=== PATIENT | male | born 1965 | race Caucasian/White ===

== ENCOUNTER → 2017-12-20 | Outpatient (CLI) | payer OTHER ==
[2017-12-20 08:09] LABS: Basophils # (A) 0.1 k/uL (0-0.2); Basophils % (A) 1 %; Eosinophils # (A) 0.1 k/uL (0-0.7); Eosinophils % (A) 2 %; HCT 47.1 % (39.0-53.0); HGB 15.5 gm/dL (13.0-17.5); Lymphocytes % (A) 30 %; MCHC 32.9 g/dL (31.0-37.0); MCV 84.9 fL (80.0-100.0); Mean Platelet Volume 7.1; Monocytes # (A) 0.5 k/uL (0-1.0); Monocytes % (A) 8 %; Neutrophils # (A) 3.7 k/uL (1.3-7.7); Neutrophils % (A) 57 %; Platelet Count 255 k/uL (150-450); RBC 5.54 m/uL (4.30-5.90); RDW 14.9 % (11.5-15.5); WBC 6.5 k/uL (3.8-10.6)
[2017-12-20 09:47] LABS: ALT 50 U/L (21-72); AST 30 U/L (17-59); Albumin 4.5 g/dL (3.5-5.0); Alkaline Phosphatase 54 U/L (38-126); Anion Gap 10 mmol/L; Blood Urea Nitrogen 10 mg/dL (9-20); Calcium 9.6 mg/dL (8.4-10.2); Carbon Dioxide 27 mmol/L (22-30); Chloride 106 mmol/L (98-107); Cholesterol 180 mg/dL (<200); Glucose 125 mg/dL (74-99); HDL Cholesterol 36 mg/dL (40-60); LDL Cholesterol,Calculated 125 mg/dL (0-99); Potassium 4.5 mmol/L (3.5-5.1); Sodium 143 mmol/L (137-145); Total Bilirubin 0.9 mg/dL (0.2-1.3); Total Protein 7.1 g/dL (6.3-8.2); Triglycerides 96 mg/dL (<150)
[2017-12-20 10:14] LABS: PSA Annual Screen 1.12 ng/mL (0.00-4.00)
== END | disposition home or self-care (01) ==
LOC: LABWHC1 07:29
PROVIDERS: ATTEND Family Medicine
DX: Z00.00 Encounter for general adult medical examination without abnormal findings (principal); I10 Essential (primary) hypertension; Z12.5 Encounter for screening for malignant neoplasm of prostate
CPT/HCPCS: 80061; 80053; 84443; 85025; 36415; G0103

== ENCOUNTER → 2019-04-12 | Outpatient (CLI) | payer OTHER ==
--- NOTE | 2019-04-12 09:00 | MM ---
Reason for exam: clinical finding. Indicated problem(s): lump or thickening in the left breast. Physical Findings: Nurse Summary: 0.5 x 0.5cm nodule in the left breast at 1 o'clock (nurse ts). MG Diagnostic Mammo w CAD OMAR Bilateral CC and MLO view(s) were taken. The breast tissue is almost entirely fat. Benign scattered round calcifications, some of which are dermal. Upper outer quadrant palpable marker on the left. These results were verbally communicated with the patient and result sheet given to the patient on 04/12/19. ASSESSMENT: Incomplete: need additional imaging evaluation, BI-RAD 0 RECOMMENDATION: Ultrasound of the left breast.
--- NOTE | 2019-04-12 09:03 | USB ---
Reason for exam: clinical finding. US Breast LT Left complete breast ultrasound includes all four quadrants, the retroareolar region and axilla. Finding demonstrates a 2.1 x 0.5 x 2.1cm oval, circumscribed, solid, isoechoic lesion at 1 o'clock BB. Lesion is soft per the nurse, features highly suggestive of a lipoma. No other solid or cystic lesion. These results were verbally communicated with the patient and result sheet given to the patient on 04/12/19. ASSESSMENT: Probably benign, BI-RAD 3 RECOMMENDATION: Ultrasound of the left breast in 6 -12 months, 1 o'clock, as a precautionary measure. Surgical consultation can be considered if the patient desires excision. ALANNA
== END | disposition home or self-care (01) ==
LOC: RADMAMWWP 07:30
PROVIDERS: ATTEND Family Medicine
DX: N63.10 Unspecified lump in the right breast, unspecified quadrant (principal); N63.20 Unspecified lump in the left breast, unspecified quadrant; R92.8 Other abnormal and inconclusive findings on diagnostic imaging of breast
CPT/HCPCS: 77066

== ENCOUNTER 2020-10-20 21:22 | Inpatient (IN) | payer OTHER ==
[2020-10-20] MEDS ORDERED: ACETAMINOPHEN TAB 500 MG TAB PO STA (22:14)
[2020-10-20] MEDS ORDERED: SODIUM CHLORIDE 0.9% 1,000 ML IV ONE ×2 (22:15→23:06)
--- NOTE | 2020-10-20 22:57 | ED ---
General Adult HPI - General Chief complaint: Shortness of Breath Stated complaint: COVID/SOB Time Seen by Provider: 10/20/20 21:58 Source: patient, RN notes reviewed, old records reviewed Mode of arrival: ambulatory Limitations: no limitations - History of Present Illness Initial comments: 55-year-old male presents to return today with complaints of difficulty in breathing. He did have a positive covid test this week. 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 Patient states he noted that his pulse ox at home was 93% prior to deciding to come to the emergency department. He states that he complains of nausea and isn't taking azithromycin and steroids for the past few days. Patient reports that he has significant thirst and is concerned that he may have diabetes because he cannot seem to quench his thirst after being on steroids. Reports family history of diabetes. He arrived to the emergency department with a fever 100.2. - Related Data Home Medications Medication Instructions Recorded Confirmed Omeprazole [PriLOSEC] 40 mg PO DAILY 07/21/15 10/20/20 Albuterol Sulfate [Albuterol 2 puff PO RT-Q6H PRN 10/20/20 10/20/20 Sulfate Hfa] Azithromycin [Zithromax] See Taper PO DIRECTED 10/20/20 10/20/20 lisinopriL 20 mg PO DAILY 10/20/20 10/20/20 predniSONE See Taper PO DIRECTED 10/20/20 10/20/20 Allergies Allergy/AdvReac Type Severity Reaction Status Date / Time tramadol [From Ultram] Allergy Itching Verified 10/20/20 23:08 Review of Systems ROS Statement: Those systems with pertinent positive or pertinent negative responses have been documented in the HPI. ROS Other: All systems not noted in ROS Statement are negative. Past Medical History Past Medical History: GERD/Reflux, Hypertension Additional Past Medical History / Comment(s): left knee History of Any Multi-Drug Resistant Organisms: None Reported Past Surgical History: Cholecystectomy Additional Past Surgical History / Comment(s): Cyst removed from left sinus 1994 Past Anesthesia/Blood Transfusion Reactions: No Reported Reaction Past Psychological History: No Psychological Hx Reported Smoking Status: Never smoker Past Alcohol Use History: None Reported Past Drug Use History: None Reported - Past Family History Mother Family Medical History: Dementia (Mother this summer from her dementia.) Additional Family Medical History / Comment(s): Father of myocardial infarction at the age of 62. He said her brother of an [facility] and he was in his 40s inspite excellent health. General Exam - General Exam Comments Initial Comments: Pleasant 55-year-old male. Limitations: no limitations General appearance: alert Head exam: Present: atraumatic, normocephalic, normal inspection Eye exam: Present: normal appearance ENT exam: Present: normal exam, mucous membranes moist Neck exam: Present: normal inspection. Absent: tenderness, meningismus, lymphadenopathy Respiratory exam: Present: normal lung sounds bilaterally. Absent: respiratory distress, wheezes, rales, rhonchi, stridor Cardiovascular Exam: Present: regular rate, normal rhythm, normal heart sounds. Absent: systolic murmur, diastolic murmur, rubs, gallop, clicks GI/Abdominal exam: Present: soft, normal bowel sounds. Absent: distended, tenderness, guarding, rebound, rigid Extremities exam: Present: normal inspection, full ROM, normal capillary refill. Absent: tenderness, pedal edema, joint swelling, calf tenderness Back exam: Present: normal inspection Neurological exam: Present: alert, oriented X3, CN II-XII intact Psychiatric exam: Present: normal affect, normal mood Skin exam: Present: warm, dry, intact, normal color. Absent: rash Course Vital Signs 10/20/20 10/21/20 21:26 00:41 Temperature 100.2 F H Pulse Rate 109 H 73 Respiratory 18 18 Rate Blood Pressure 145/77 132/75 O2 Sat by Pulse 97 98 Oximetry Medical Decision Making - Medical Decision Making Patient 5-year-old male with a diagnosis of easley virus on Friday. He presents emergency department with concern for difficulty in breathing and increased thirst. He's been on steroids and azithromycin for the past few days. At this time Patient was found to be hyperglycemic with a new onset diabetes blood sugar of 696. He is acetone positive. Patient is given Tylenol for his fever. He was started on 2 L bolus. Likely that the steroids and easley virus caused the induction of type 2 diabetes for this Patient. Patient is chest x- rays reviewed and shows atelectasis but no significant pneumonia. He's been 95% on room air and emergency department. With the concern of new diagnosis of diabetes as well as easley virus infection Patient will be admitted at this time. - Lab Data Result diagrams: 10/20/20 22:45 10/20/20 22:45 Lab Results 10/20/20 10/20/20 10/20/20 Range/Units 22:45 22:45 22:45 WBC 5.7 (3.8-10.6) k/uL RBC 5.74 (4.30-5.90) m/uL Hgb 15.8 (13.0-17.5) gm/dL Hct 46.9 (39.0-53.0) % MCV 81.8 (80.0-100.0) fL MCH 27.5 (25.0-35.0) pg MCHC 33.6 (31.0-37.0) g/dL RDW 13.2 (11.5-15.5) % Plt Count 190 (150-450) k/uL MPV 8.0 Neutrophils % 82 % Lymphocytes % 11 % Monocytes % 6 % Eosinophils % 1 % Basophils % 0 % Neutrophils # 4.7 (1.3-7.7) k/uL Lymphocytes # 0.6 L (1.0-4.8) k/uL Monocytes # 0.3 (0-1.0) k/uL Eosinophils # 0.0 (0-0.7) k/uL Basophils # 0.0 (0-0.2) k/uL PT 9.6 (9.0-12.0) sec INR 0.9 (<1.2) APTT 30.6 H (22.0-30.0) sec D-Dimer 0.41 (<0.60) mg/L FEU Sodium 127 L (137-145) mmol/L Potassium 5.7 H (3.5-5.1) mmol/L Chloride 93 L (98-107) mmol/L Carbon Dioxide 19 L (22-30) mmol/L Anion Gap 15 mmol/L BUN 26 H (9-20) mg/dL Creatinine 1.04 (0.66-1.25) mg/dL Est GFR (CKD-EPI)AfAm >90 (>60 ml/min/1.73 sqM) Est GFR (CKD-EPI)NonAf 82 (>60 ml/min/1.73 sqM) Glucose 696 H* (74-99) mg/dL POC Glucose (mg/dL) (75-99) mg/dL POC Glu Head Housekeeper ID Plasma Lactic Acid Axel (0.7-2.0) mmol/L Calcium 9.0 (8.4-10.2) mg/dL Magnesium 1.8 (1.6-2.3) mg/dL Total Bilirubin 1.1 (0.2-1.3) mg/dL AST 48 (17-59) U/L ALT 73 H (4-49) U/L Alkaline Phosphatase 83 (38-126) U/L Lactate Dehydrogenase 397 (313-618) U/L C-Reactive Protein 16.9 H (<10.0) mg/L Total Protein 7.2 (6.3-8.2) g/dL Albumin 4.5 (3.5-5.0) g/dL Acetone, Qual (Negative) 10/20/20 10/20/20 10/20/20 Range/Units 22:45 22:45 23:00 WBC (3.8-10.6) k/uL RBC (4.30-5.90) m/uL Hgb (13.0-17.5) gm/dL Hct (39.0-53.0) % MCV (80.0-100.0) fL MCH (25.0-35.0) pg MCHC (31.0-37.0) g/dL RDW (11.5-15.5) % Plt Count (150-450) k/uL MPV Neutrophils % % Lymphocytes % % Monocytes % % Eosinophils % % Basophils % % Neutrophils # (1.3-7.7) k/uL Lymphocytes # (1.0-4.8) k/uL Monocytes # (0-1.0) k/uL Eosinophils # (0-0.7) k/uL Basophils # (0-0.2) k/uL PT (9.0-12.0) sec INR (<1.2) APTT (22.0-30.0) sec D-Dimer (<0.60) mg/L FEU Sodium (137-145) mmol/L Potassium (3.5-5.1) mmol/L Chloride (98-107) mmol/L Carbon Dioxide (22-30) mmol/L Anion Gap mmol/L BUN (9-20) mg/dL Creatinine (0.66-1.25) mg/dL Est GFR (CKD-EPI)AfAm (>60 ml/min/1.73 sqM) Est GFR (CKD-EPI)NonAf (>60 ml/min/1.73 sqM) Glucose (74-99) mg/dL POC Glucose (mg/dL) >600 H (75-99) mg/dL POC Glu Head Housekeeper ID Gerry Mcguire Plasma Lactic Acid Axel 1.8 (0.7-2.0) mmol/L Calcium (8.4-10.2) mg/dL Magnesium (1.6-2.3) mg/dL Total Bilirubin (0.2-1.3) mg/dL AST (17-59) U/L ALT (4-49) U/L Alkaline Phosphatase (38-126) U/L Lactate Dehydrogenase (313-618) U/L C-Reactive Protein (<10.0) mg/L Total Protein (6.3-8.2) g/dL Albumin (3.5-5.0) g/dL Acetone, Qual Positive (Negative) 10/21/20 Range/Units 00:00 WBC (3.8-10.6) k/uL RBC (4.30-5.90) m/uL Hgb (13.0-17.5) gm/dL Hct (39.0-53.0) % MCV (80.0-100.0) fL MCH (25.0-35.0) pg MCHC (31.0-37.0) g/dL RDW (11.5-15.5) % Plt Count (150-450) k/uL MPV Neutrophils % % Lymphocytes % % Monocytes % % Eosinophils % % Basophils % % Neutrophils # (1.3-7.7) k/uL Lymphocytes # (1.0-4.8) k/uL Monocytes # (0-1.0) k/uL Eosinophils # (0-0.7) k/uL Basophils # (0-0.2) k/uL PT (9.0-12.0) sec INR (<1.2) APTT (22.0-30.0) sec D-Dimer (<0.60) mg/L FEU Sodium (137-145) mmol/L Potassium (3.5-5.1) mmol/L Chloride (98-107) mmol/L Carbon Dioxide (22-30) mmol/L Anion Gap mmol/L BUN (9-20) mg/dL Creatinine (0.66-1.25) mg/dL Est GFR (CKD-EPI)AfAm (>60 ml/min/1.73 sqM) Est GFR (CKD-EPI)NonAf (>60 ml/min/1.73 sqM) Glucose (74-99) mg/dL POC Glucose (mg/dL) >600 H (75-99) mg/dL POC Glu Head Housekeeper ID Zain Cope Plasma Lactic Acid Axel (0.7-2.0) mmol/L Calcium (8.4-10.2) mg/dL Magnesium (1.6-2.3) mg/dL Total Bilirubin (0.2-1.3) mg/dL AST (17-59) U/L ALT (4-49) U/L Alkaline Phosphatase (38-126) U/L Lactate Dehydrogenase (313-618) U/L C-Reactive Protein (<10.0) mg/L Total Protein (6.3-8.2) g/dL Albumin (3.5-5.0) g/dL Acetone, Qual (Negative) 10/21/20 00:47 EKG performed at 2256 shows normal sinus rhythm possible left atrial enlargeme nt. Borderline EKG. Ventricular rate of 78 bpm. As 154 ms. QRS duration is 84 ms. QT QTc is 366/420 ms. - Radiology Data Radiology results: report reviewed Chest x-ray shows minimal subsegmental atelectasis in the left midlung. Normal heart. Disposition Clinical Impression: COVID-19, Newly diagnosed diabetes Disposition: ADMITTED IP TO THIS HOSP Condition: Stable Is patient prescribed a controlled substance at d/c from ED?: No Referrals: Vj Malik DO [Primary Care Provider] - 1-2 days Time of Disposition: 00:50
--- NOTE | 2020-10-20 23:02 | XR ---
EXAMINATION TYPE: XR chest 1V portable DATE OF EXAM: 10/20/2020 COMPARISON: NONE HISTORY: Short of breath TECHNIQUE: FINDINGS: There is small linear density left midlung. The other lung reynoso are clear. Heart and medi astinum are normal. Diaphragm is normal. Bony thorax appears intact. IMPRESSION: Minimal subsegmental atelectasis in the left midlung. Normal heart.
[2020-10-20 23:03] LABS: Basophils % (A) 0 %; Eosinophils % (A) 1 %; HCT 46.9 % (39.0-53.0); HGB 15.8 gm/dL (13.0-17.5); Lymphocytes # (A) 0.6 k/uL (1.0-4.8); Lymphocytes % (A) 11 %; MCH 27.5 pg (25.0-35.0); MCHC 33.6 g/dL (31.0-37.0); MCV 81.8 fL (80.0-100.0); Monocytes # (A) 0.3 k/uL (0-1.0); Monocytes % (A) 6 %; Neutrophils # (A) 4.7 k/uL (1.3-7.7); Neutrophils % (A) 82 %; Platelet Count 190 k/uL (150-450); RBC 5.74 m/uL (4.30-5.90); RDW 13.2 % (11.5-15.5); WBC 5.7 k/uL (3.8-10.6)
[2020-10-20 23:06] LABS: Glucose,Whole Blood >600 mg/dL (75-99)
[2020-10-20 23:16] LABS: ALT 73 U/L (4-49); AST 48 U/L (17-59); African American GFR (CKD) >90 (>60 ml/min/1.73 sqM); Albumin 4.5 g/dL (3.5-5.0); Alkaline Phosphatase 83 U/L (38-126); Anion Gap 15 mmol/L; Blood Urea Nitrogen 26 mg/dL (9-20); C Reactive Protein 16.9 mg/L (<10.0); Carbon Dioxide 19 mmol/L (22-30); Chloride 93 mmol/L (98-107); D-Dimer 0.41 mg/L FEU (<0.60); INR 0.9 (<1.2); LDH 397 U/L (313-618); Magnesium 1.8 mg/dL (1.6-2.3); Non-African American GFR(CKD) 82 (>60 ml/min/1.73 sqM); Partial Thromboplastin Time 30.6 sec (22.0-30.0); Potassium 5.7 mmol/L (3.5-5.1); Prothrombin Time 9.6 sec (9.0-12.0); Sodium 127 mmol/L (137-145); Total Bilirubin 1.1 mg/dL (0.2-1.3); Total Protein 7.2 g/dL (6.3-8.2)
[2020-10-20] MEDS ORDERED: ONDANSETRON 4 MG/2 ML VIAL IM STA (23:17)
[2020-10-20] MEDS ORDERED: ONDANSETRON 4 MG/2 ML VIAL IVP STA (23:24)
[2020-10-20 23:29] LABS: Glucose 696 mg/dL (74-99)
[2020-10-20] MEDS ORDERED: INSULIN REGULAR 100 UNIT in SODIUM CHLORIDE 0.9% 100 ML IV SCH (23:45)
[2020-10-20] MEDS ORDERED: INSULIN REGULAR BOLUS (FROM DRIP BAG) IV ONE (23:55)
[2020-10-21 00:01] LABS: Glucose,Whole Blood >600 mg/dL (75-99)
[2020-10-21] MEDS: SODIUM CHLORIDE 0.9% 1,000 ML IV SCH ×5 (00:31→16:06)
[2020-10-21] MEDS ORDERED: ALBUTEROL HFA INHALER INHALATION STA (00:50)
[2020-10-21] MEDS ORDERED: ACETAMINOPHEN TAB 500 MG TAB PO STA (00:50)
[2020-10-21 01:55] LABS: Glucose,Whole Blood 458 mg/dL (75-99)
[2020-10-21 03:00] LABS: Glucose,Whole Blood 325 mg/dL (75-99)
[2020-10-21 04:06] LABS: Glucose,Whole Blood 297 mg/dL (75-99)
[2020-10-21] MEDS: D5-0.45% NACL WITH KCL 20MEQ/L 1,000 ML IV SCH ×2 (04:44→06:24)
[2020-10-21 05:01] LABS: Glucose,Whole Blood 246 mg/dL (75-99)
[2020-10-21 05:29] LABS: African American GFR (CKD) >90 (>60 ml/min/1.73 sqM); Anion Gap 8 mmol/L; Blood Urea Nitrogen 23 mg/dL (9-20); Carbon Dioxide 22 mmol/L (22-30); Chloride 105 mmol/L (98-107); Glucose 255 mg/dL (74-99); Non-African American GFR(CKD) >90 (>60 ml/min/1.73 sqM); Phosphorus 4.3 mg/dL (2.5-4.5); Potassium 3.8 mmol/L (3.5-5.1); Sodium 135 mmol/L (137-145)
[2020-10-21] MEDS ORDERED: INSULIN NPH 300 UNIT/3 ML VIAL SQ ONE (05:51)
[2020-10-21 06:03] LABS: Glucose,Whole Blood 192 mg/dL (75-99)
[2020-10-21] MEDS: INSULIN ASPART (NovoLOG) 100 UNIT/ML VIAL SQ SCH ×5 (07:00→21:21)
[2020-10-21] MEDS: INSULIN DETEMIR (LEVEMIR) 100 UNIT/ML SYR SQ SCH (07:00)
[2020-10-21] MEDS: ENOXAPARIN 40 MG/0.4 ML SYRINGE SQ SCH (07:42)
[2020-10-21 09:26] LABS: African American GFR (CKD) >90 (>60 ml/min/1.73 sqM); Anion Gap 6 mmol/L; Blood Urea Nitrogen 22 mg/dL (9-20); Carbon Dioxide 26 mmol/L (22-30); Chloride 106 mmol/L (98-107); Glucose 111 mg/dL (74-99); Non-African American GFR(CKD) >90 (>60 ml/min/1.73 sqM); Potassium 4.1 mmol/L (3.5-5.1); Sodium 138 mmol/L (137-145)
[2020-10-21 09:33] LABS: Ferritin 265.6 ng/mL (22.0-322.0)
--- NOTE | 2020-10-21 11:05 | P.HPIM ---
History of Present Illness Patient is a pleasant 55-year-old the male who was recently diagnosed with covid 19 came in with the some difficulty of breathing nausea. Patient is high of found to have highly elevated blood sugars was never diagnosed with her diabetes mellitus. Patient also is taking her prednisone as an outpatient after he was diagnosed with Covid 19. Patient blood sugars were in 600 was given 30 units of Lantus last night blood sugars have come down to 200 his blood sugars are very high because of the systemic steroids. Probably can try oral glycemic agents and thing was discussed with the patient patient wanted to try metformin patient will be discharged on metformin find it twice a day will need an increased dose of metformin probably around thousand twice a day. Patient will also be started on high dose of glipizide and patient will check his blood sugars and they're going on patient will cut down the dose. Patient will need glipizide of for steroid-induced hyperglycemia. Diabetic supplies glucometer, diverticular educa tion and be provided. 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 Review of Systems REVIEW OF SYSTEMS: CONSTITUTIONAL: No fever, no malaise, no fatigue. HEENT: No recent visual problems or hearing problems. Denied any sore throat. CARDIOVASCULAR: No chest pain, orthopnea, PND, no palpitations, no syncope. PULMONARY: No shortness of breath, no cough, no hemoptysis. GASTROINTESTINAL: No diarrhea, no nausea, no vomiting, no abdominal pain. NEUROLOGICAL: No headaches, no weakness, no numbness. HEMATOLOGICAL: Denies any bleeding or petechiae. GENITOURINARY: Denies any burning micturition, frequency, or urgency. MUSCULOSKELETAL/RHEUMATOLOGICAL: Denies any joint pain, swelling, or any muscle pain. ENDOCRINE: Denies any polyuria or polydipsia. The rest of the 14-point review of systems is negative. Past Medical History Past Medical History: GERD/Reflux, Hypertension Additional Past Medical History / Comment(s): left knee gout History of Any Multi-Drug Resistant Organisms: None Reported Past Surgical History: Cholecystectomy Additional Past Surgical History / Comment(s): Cyst removed from left sinus 1994 Past Anesthesia/Blood Transfusion Reactions: No Reported Reaction Past Psychological History: No Psychological Hx Reported Additional Psychological History / Comment(s): Retired from the [employer]. 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 He is lives with family home with his . He has 4 adult children from the age of 26-22 of them currently live at home. One son is in the in [place] but he has not visited there. He relates that he has not traveled overseas since his time in the [employer], he was in [place]. He was stationed in multiple [facility] but has not traveled out of the [place] area in quite some time. He does occasionally visit his son in the state of [place], this is the last base that he was on before he retired. There are no animals within the home. He has no severe history of alcohol or recreational drug use or tobacco use. Smoking Status: Never smoker Past Alcohol Use History: None Reported Past Drug Use History: None Reported - Past Family History Mother Family Medical History: Dementia Additional Family Medical History / Comment(s): Father of myocardial infarction at the age of 62. He said her brother of an [place] and he was in his 40s inspite excellent health. Medications and Allergies Home Medications Medication Instructions Recorded Confirmed Type Omeprazole [PriLOSEC] 40 mg PO DAILY 07/21/15 10/20/20 History Albuterol Sulfate [Albuterol 2 puff PO RT-Q6H PRN 10/20/20 10/20/20 History Sulfate Hfa] Azithromycin [Zithromax] See Taper PO DIRECTED 10/20/20 10/20/20 History predniSONE See Taper PO DIRECTED 10/20/20 10/20/20 History glipiZIDE [Glucotrol] 20 mg PO AC-BID #60 tablet 10/21/20 Rx lisinopriL 10 mg PO DAILY #0 10/21/20 10/20/20 Rx metFORMIN HCL [Glucophage] 500 mg PO BID #60 tab 10/21/20 Rx Allergies Allergy/AdvReac Type Severity Reaction Status Date / Time tramadol [From Ultram] Allergy Itching Verified 10/20/20 23:08 Physical Exam Vitals: Vital Signs Temp Pulse Pulse Resp BP BP Pulse Ox 10/21/20 07:48 97.7 F 68 18 117/64 99 10/21/20 04:00 97.8 F 71 18 110/65 99 10/21/20 03:12 98.1 F 75 18 120/66 100 10/21/20 02:30 98.1 F 75 18 123/69 98 10/21/20 01:50 87 18 141/75 98 10/21/20 01:00 89 19 124/80 99 10/21/20 00:41 73 18 132/75 98 10/21/20 00:00 98.1 F 73 18 129/70 98 10/20/20 21:26 100.2 F H 109 H 18 145/77 97 Intake and Output 10/20/20 10/21/20 10/21/20 22:59 06:59 14:59 Intake Total 670.334 240 Balance 670.334 240 Intake: Intake, IV Titration 670.334 Amount Insulin Regular 100 unit 70.334 In Sodium Chloride 0.9% 100 ml @ 0.1 UNITS/KG/HR 9.891 mls/hr IV .[id number] [facility] Rx#:[id number] Sodium Chloride 0.9% 1, 600 000 ml @ 200 mls/hr IV . Q5H [facility] Rx#:[id number] Oral 240 Other: # Voids 1 Weight 97.931 kg 101.5 kg PHYSICAL EXAMINATION: GENERAL: The patient is alert and oriented x3, not in any acute distress. Well developed, well nourished. HEENT: Pupils are round and equally reacting to light. EOMI. No scleral icterus. No conjunctival pallor. Normocephalic, atraumatic. No pharyngeal erythema. No thyromegaly. CARDIOVASCULAR: S1 and S2 present. No murmurs, rubs, or gallops. PULMONARY: Chest is clear to auscultation, no wheezing or crackles. ABDOMEN: Soft, nontender, nondistended, normoactive bowel sounds. No palpable organomegaly. MUSCULOSKELETAL: No joint swelling or deformity. EXTREMITIES: No cyanosis, clubbing, or pedal edema. NEUROLOGICAL: Gross neurological examination did not reveal any focal deficits. SKIN: No rashes. Results CBC & Chem 7: 10/20/20 22:45 10/21/20 08:04 Labs: Abnormal Lab Results - Last 24 Hours (Table) 10/20/20 10/20/20 10/20/20 Range/Units 22:45 22:45 22:45 Lymphocytes # 0.6 L (1.0-4.8) k/uL APTT 30.6 H (22.0-30.0) sec Sodium 127 L (137-145) mmol/L Potassium 5.7 H (3.5-5.1) mmol/L Chloride 93 L (98-107) mmol/L Carbon Dioxide 19 L (22-30) mmol/L BUN 26 H (9-20) mg/dL Glucose 696 H* (74-99) mg/dL POC Glucose (mg/dL) (75-99) mg/dL ALT 73 H (4-49) U/L C-Reactive Protein 16.9 H (<10.0) mg/L 10/20/20 10/21/20 10/21/20 Range/Units 23:00 00:00 01:48 Lymphocytes # (1.0-4.8) k/uL APTT (22.0-30.0) sec Sodium (137-145) mmol/L Potassium (3.5-5.1) mmol/L Chloride (98-107) mmol/L Carbon Dioxide (22-30) mmol/L BUN (9-20) mg/dL Glucose (74-99) mg/dL POC Glucose (mg/dL) >600 H >600 H 458 H (75-99) mg/dL ALT (4-49) U/L C-Reactive Protein (<10.0) mg/L 10/21/20 10/21/20 10/21/20 Range/Units 02:58 04:04 04:53 Lymphocytes # (1.0-4.8) k/uL APTT (22.0-30.0) sec Sodium 135 L (137-145) mmol/L Potassium (3.5-5.1) mmol/L Chloride (98-107) mmol/L Carbon Dioxide (22-30) mmol/L BUN 23 H (9-20) mg/dL Glucose 255 H (74-99) mg/dL POC Glucose (mg/dL) 325 H 297 H (75-99) mg/dL ALT (4-49) U/L C-Reactive Protein (<10.0) mg/L 10/21/20 10/21/20 10/21/20 Range/Units 05:00 06:02 08:04 Lymphocytes # (1.0-4.8) k/uL APTT (22.0-30.0) sec Sodium (137-145) mmol/L Potassium (3.5-5.1) mmol/L Chloride (98-107) mmol/L Carbon Dioxide (22-30) mmol/L BUN 22 H (9-20) mg/dL Glucose 111 H (74-99) mg/dL POC Glucose (mg/dL) 246 H 192 H (75-99) mg/dL ALT (4-49) U/L C-Reactive Protein (<10.0) mg/L Thrombosis Risk Factor Assmnt - Choose All That Apply Any of the Below Risk Factors Present?: Yes Each Factor Represents 1 point: Age 41-60 years Other Risk Factors: No Other congenital or acquired thrombophilia - If yes, enter type in comment: No Thrombosis Risk Factor Assessment Total Risk Factor Score: 1 Thrombosis Risk Factor Assessment Level: Low Risk Assessment and Plan Plan: Hypoglycemia: New-onset diabetes mellitus: Management as mentioned above -Covid 19 pneumonia and hypoxia secondary to that patient is saturating well without any oxygen at this time will be discharged today patient will continue his steroid taper but will taper it faster than is advised by his PCP. [place]- -gastroesophageal reflux disease -Hypertension: Patient blood pressures are low normal, we will cut down the dose of lisinopril to 10 mg
[2020-10-21 12:24] LABS: Glucose,Whole Blood 354 mg/dL (75-99)
[2020-10-21] MEDS ORDERED: ONDANSETRON ODT 4 MG TAB PO STA (12:30)
[2020-10-21 14:26] LABS: Glucose,Whole Blood 367 mg/dL (75-99)
[2020-10-21] MEDS ORDERED: INSULIN ASPART (NovoLOG) 100 UNIT/ML VIAL SQ ONE (15:07)
[2020-10-21 16:45] LABS: Glucose,Whole Blood 344 mg/dL (75-99)
--- NOTE | 2020-10-21 19:16 | CT ---
EXAMINATION TYPE: CT angio chest DATE OF EXAM: 10/21/2020 6:57 PM COMPARISON: Radiograph 10/20/2020. HISTORY: Increased dyspnea, +covid. CT DLP: 395.9 mGycm Automated exposure control for dose reduction was used. CONTRAST: CTA scan of the thorax is performed with IV Contrast, patient injected with 100 mL of Isovue 370, pul monary embolism protocol. MIP images are created and reviewed. FINDINGS: LUNGS: There are bilateral diffuse mild to moderate patchy groundglass opacities. There is no pleur al effusion or pneumothorax seen. The tracheobronchial tree is patent. MEDIASTINUM: There is satisfactory enhancement of the pulmonary artery and its branches, there is no CT evidence for pulmonary embolism. There are no greater than 1 cm hilar or mediastinal lymph nodes. No pericardial effusion is seen. OTHER: No additional significant abnormality is seen. Hepatic steatosis noted. IMPRESSION: BILATERAL DIFFUSE GROUNDGLASS OPACITIES, CONSISTENT WITH COVID PNEUMONIA. NO ACUTE PE.
[2020-10-21] MEDS ORDERED: IBUPROFEN 200 MG TAB PO PRN (21:01)
[2020-10-21 21:20] LABS: Glucose,Whole Blood 249 mg/dL (75-99)
[2020-10-21] MEDS: CHOLECALCIFEROL 400 UNIT TAB PO SCH (21:21)
[2020-10-21] MEDS: ASCORBIC ACID 500 MG TAB PO SCH (21:21)
[2020-10-21] MEDS: ZINC SULFATE 220 MG CAP PO SCH (21:21)
[2020-10-21] MEDS: ONDANSETRON ODT 4 MG TAB PO PRN (21:50)
[2020-10-22] MEDS: SODIUM CHLORIDE 0.9% 1,000 ML IV SCH ×3 (01:08→20:36)
[2020-10-22] MEDS ORDERED: ARTIFICIAL TEARS-HYPROMELLOSE DROPS 15 ML BTL BOTH EYES PRN (07:17)
[2020-10-22 07:24] LABS: Glucose,Whole Blood 278 mg/dL (75-99)
[2020-10-22] MEDS ORDERED: PANTOPRAZOLE 40 MG TABLET PO SCH (07:30)
[2020-10-22] MEDS: PANTOPRAZOLE 40 MG/10 ML VIAL IVP SCH ×2 (07:52→20:26)
[2020-10-22] MEDS: ENOXAPARIN 40 MG/0.4 ML SYRINGE SQ SCH (07:56)
[2020-10-22] MEDS: INSULIN ASPART (NovoLOG) 100 UNIT/ML VIAL SQ SCH ×7 (07:58→20:35)
[2020-10-22] MEDS: INSULIN DETEMIR (LEVEMIR) 100 UNIT/ML SYR SQ SCH (07:58)
[2020-10-22] MEDS ORDERED: BENZOCAINE/MENTHOL LOZENG 1 EACH LOZENGE MUCOUS MEM PRN (08:42)
[2020-10-22] MEDS: dexAMETHasone 2 MG TAB PO SCH ×2 (09:38→09:45)
[2020-10-22] MEDS: MAG HYDROX/AL HYDROX/SIMETH 30 ML, diphenhydrAMINE ELIXIR 75 MG, LIDOCAINE VISCOUS 30 ML PO SCH ×9 (09:38→20:38)
[2020-10-22] MEDS: DEXAMETHASONE SOD PHOSPHATE 10 MG/ML 1 ML VIAL IV SCH (11:50)
[2020-10-22 12:07] LABS: C Reactive Protein 20.8 mg/L (<10.0)
[2020-10-22 12:17] LABS: Glucose,Whole Blood 183 mg/dL (75-99)
[2020-10-22] MEDS ORDERED: ACETAMINOPHEN IV (For NPO) 1,000 MG in EMPTY BAG 1 BAG IVPB ONE (12:58)
[2020-10-22] MEDS ORDERED: REMDESIVIR (EUA) 200 MG in SODIUM CHLORIDE 0.9% 250 ML IVPB ONE (13:00)
[2020-10-22 13:17] LABS: Hemoglobin A1C 9.8 % (4.0-6.0)
--- NOTE | 2020-10-22 13:21 | P.PN ---
Subjective 55-year-old male was admitted for Covid19. Patient is also new-onset diabetes mellitus. Patient didn't do well as today patient was quite a bit nauseous quite miserable today became hypoxic patient was started on Decadron infectious disease was consulted. And he became hypoxic pulmonary was consulted as well. Patient came in with blood sugars of 600 his blood sugars are expected to go up we'll increase the long-acting insulin to 45 units. and is not able to tolerate the diet. Patient was started on clear liquid diet instead of regular diet. Constitutional: As mentioned in HPI Cardio vascular: denied any chest pain, palpitations Gastrointestinal as mentioned in HPI Pulmonary: As mentioned in HPI Neurologic denied any new focal deficits All inpatient medications were reviewed and appropriate changes in these medications as dictated in the interval history and assessment and plan. Objective - Vital Signs Vital signs: Vital Signs Temp 99.7 F H 10/22/20 11:45 Pulse 85 10/22/20 11:45 Resp 14 10/22/20 11:45 BP 137/69 10/22/20 11:45 Pulse Ox 96 10/22/20 11:45 Intake & Output 10/21/20 10/22/20 10/22/20 18:59 06:59 18:59 Intake Total 600 2100 Output Total 375 Balance 600 1725 Weight 101.5 kg 105.5 kg Intake: Intake, IV Titration 900 Amount Sodium Chloride 0.9% 1, 900 000 ml @ 100 mls/hr IV . Q10H [facility] Rx#:[id number] Oral 600 1200 Output: Urine 375 Other: # Voids 1 0 - Exam PHYSICAL EXAMINATION: GENERAL: The patient is alert and oriented x3, she is in distress because of access nausea. Well developed, well nourished. HEENT: Pupils are round and equally reacting to light. EOMI. No scleral icterus. No conjunctival pallor. Normocephalic, atraumatic. No pharyngeal erythema. No thyromegaly. CARDIOVASCULAR: S1 and S2 present. No murmurs, rubs, or gallops. PULMONARY: Chest is clear to auscultation, no wheezing or crackles. ABDOMEN: Soft, nontender, nondistended, normoactive bowel sounds. No palpable organomegaly. MUSCULOSKELETAL: No joint swelling or deformity. EXTREMITIES: No cyanosis, clubbing, or pedal edema. NEUROLOGICAL: Gross neurological examination did not reveal any focal deficits. SKIN: No rashes. Note: Because of COVID 19 isolation, some of the history and physical exam findings are indirect and obtained from nursing staff, and other physician examinations to avoid unnecessary contact with the patient. - Labs CBC & Chem 7: 10/20/20 22:45 10/21/20 08:04 Labs: Abnormal Lab Results - Last 24 Hours (Table) 10/21/20 10/21/20 10/21/20 Range/Units 08:04 14:25 16:35 POC Glucose (mg/dL) 367 H 344 H (75-99) mg/dL Hemoglobin A1c 9.8 H (4.0-6.0) % C-Reactive Protein (<10.0) mg/L 10/21/20 10/22/20 10/22/20 Range/Units 21:10 07:22 11:38 POC Glucose (mg/dL) 249 H 278 H (75-99) mg/dL Hemoglobin A1c (4.0-6.0) % C-Reactive Protein 20.8 H (<10.0) mg/L 10/22/20 Range/Units 12:15 POC Glucose (mg/dL) 183 H (75-99) mg/dL Hemoglobin A1c (4.0-6.0) % C-Reactive Protein (<10.0) mg/L Microbiology - Last 24 Hours (Table) 10/20/20 22:45 Blood Culture - Preliminary Blood No Growth after 24 hours Assessment and Plan Plan: -Acute hypoxic respiratory failure secondary to Covid 19 pneumonia patient was started on Decadron and will need Remdesivir Hypoglycemia: New-onset diabetes mellitus: Patient is on long-acting insulin -Covid 19 pneumonia and hypoxia secondary to that patient is saturating well without any oxygen at this time will be discharged today patient will continue his steroid taper but will taper it faster than is advised by his PCP. -gastroesophageal reflux disease -Hypertension: Patient blood pressures are low normal, not receiving his DIANE inhibitor.
[2020-10-22] MEDS ORDERED: ALBUTEROL HFA INHALER INHALATION SCH (14:00)
--- NOTE | 2020-10-22 16:34 | P.CNPUL ---
History of Present Illness Consult date: 10/22/20 Reason for consult: dyspnea, pneumonia History of present illness: 55-year-old patient, presenting to the hospital because of complications of an acute: 90 related infection. The patient developed symptoms approximately a week ago. He developed generalized weakness, body aches, fatigue, tiredness, headaches and he was taking prednisone at home which obviously cause some disturbances blood sugar and the patient developed some hyperglycemia. Note that he has not been diagnosed with diabetes mellitus although this has been suspected and the patient developed increased polyuria and polydipsia while being on systemic prednisone. Subsequently, he started having increased shortness of breath and cough and he came into the hospital and he was hospitalized yesterday for: 90 related infection/pneumonia. He underwent a chest x-ray and subsequently a CAT scan of the chest in the emergency department that showed limited hazy groundglass pulmonary infiltrates bilaterally. He was getting up to the bathroom today when he became acutely short of breath and he desaturated. He is currently on 2 L of oxygen by nasal cannula. I saw this pat ient consultation. He is currently on Decadron 6 mg IV 24 hours. He was started on Remdesivir per protocol for a total of 5 days. He is currently receiving IV fluids with normal saline at the rate of 100 mL an hour. He is on Lovenox 40 mg subcu for DVT prophylaxis. In terms of his blood work, the patient's had a ferritin level of 265, LDH of 397, CRP of 16.9 which is up to 20.8 and a LEVEL OF 0.25. HIS BLOOD SUGAR WAS 696 AT A TIME OF HIS ADMISSION.. HE WAS GIVEN LONG-ACTING INSULIN AND BLOOD SUGARS UNDER MUCH BETTER CONTROL FOR NOW. LIVER FUNCTION TEST SHOWS AST OF 48, ALT OF 73, ALKALINE PHOSPHATASE OF 83 WITH A BILIRUBIN OF 1.1. TROPONINS ARE LESS THAN 0.012. The patient's d-dimer is at 0.44. The patient is currently on Lovenox for DVT prophylaxis. Review of Systems Constitutional: Reports fatigue, Reports lethargy, Reports poor appetite, Reports weakness, Reports weight loss Eyes: denies as per HPI, denies blurred vision, denies bulging eye, denies decreased vision, denies diplopia, denies discharge, denies dry eye, denies irritation, denies itching, denies pain, denies photophobia, denies loss of wesley pheral vision, denies loss of vision, denies tunnel vision/blind spots Ears: deny: decreased hearing, ear discharge, earache, tinnitus Ears, nose, mouth and throat: Reports as per HPI Breasts: absent: as per HPI, gynecomastia Cardiovascular: Reports dyspnea on exertion Respiratory: Reports cough, Reports dyspnea Gastrointestinal: Reports as per HPI Genitourinary: Reports as per HPI Musculoskeletal: Reports as per HPI Musculoskeletal: absent: ankle pain, ankle stiffness, ankle swelling Integumentary: Reports as per HPI Neurological: Reports as per HPI, Reports weakness Psychiatric: Reports as per HPI Endocrine: Reports as per HPI Hematologic/Lymphatic: Reports as per HPI Allergic/Immunologic: Reports as per HPI Past Medical History Past Medical History: GERD/Reflux, Hypertension Additional Past Medical History / Comment(s): gout History of Any Multi-Drug Resistant Organisms: None Reported Past Surgical History: Cholecystectomy Additional Past Surgical History / Comment(s): Cyst removed from left sinus 1994 Past Anesthesia/Blood Transfusion Reactions: No Reported Reaction Past Psychological History: No Psychological Hx Reported Additional Psychological History / Comment(s): Retired from the [employer]. 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 He is lives with family home with his . He has 4 adult children from the age of 26-22 of them currently live at home. One son is in the in [place] but he has not visited there. He relates that he has not traveled overseas since his time in the [employer], he was in [place]. He was stationed in multiple [facility] but has not traveled out of the [place] area in quite some time. He does occasionally visit his son in the state of [place], this is the last base that he was on before he retired. There are no animals within the home. He has no severe history of alcohol or recreational drug use or tobacco use. Smoking Status: Never smoker Past Alcohol Use History: None Reported Past Drug Use History: None Reported - Past Family History Mother Family Medical History: Dementia Additional Family Medical History / Comment(s): Father of myocardial infarction at the age of 62. He said her brother of an PA and he was in his 40s inspite excellent health. Medications and Allergies Home Medications Medication Instructions Recorded Confirmed Type Omeprazole [PriLOSEC] 40 mg PO DAILY 07/21/15 10/20/20 History Albuterol Sulfate [Albuterol 2 puff PO RT-Q6H PRN 10/20/20 10/20/20 History Sulfate Hfa] Azithromycin [Zithromax] See Taper PO DIRECTED 10/20/20 10/20/20 History predniSONE See Taper PO DIRECTED 10/20/20 10/20/20 History Ondansetron Odt [Zofran Odt] 4 mg PO Q8HR PRN #30 tab 10/21/20 Rx glipiZIDE [Glucotrol] 20 mg PO AC-BID #60 tablet 10/21/20 Rx lisinopriL 10 mg PO DAILY #0 10/21/20 10/20/20 Rx metFORMIN HCL [Glucophage] 500 mg PO BID #60 tab 10/21/20 Rx Allergies Allergy/AdvReac Type Severity Reaction Status Date / Time tramadol [From Ultram] Allergy Itching Verified 10/20/20 23:08 Physical Exam Vitals: Vital Signs Temp Pulse Resp BP Pulse Ox 10/22/20 15:14 99.4 F 78 16 133/74 96 10/22/20 11:45 99.7 F H 85 14 137/69 96 10/22/20 07:49 100.7 F H 81 18 152/75 98 10/22/20 04:00 99.7 F H 72 20 137/72 99 10/22/20 03:31 20 10/22/20 00:00 99.6 F 81 20 138/70 96 10/21/20 23:00 96 10/21/20 20:00 99.7 F H 85 20 149/69 100 Intake and Output 10/22/20 10/22/20 10/22/20 06:59 14:59 22:59 Intake Total 2100 Output Total 375 Balance 1725 Intake: Intake, IV Titration 900 Amount Sodium Chloride 0.9% 1, 900 000 ml @ 100 mls/hr IV . Q10H [facility] Rx#:[id number] Oral 1200 Output: Urine 375 Other: # Voids 0 Weight 105.5 kg The patient appeared well nourished and normally developed. Vital signs as documented. Head exam is unremarkable. No scleral icterus or corneal arcus noted. Neck is without jugular venous distension, thyromegaly, or carotid bruits. Carotid upstrokes are brisk bilaterally. Lungs are clear to auscultation and percussion. Cardiac exam reveals the PMI to be normally sized and situated. Rhythm is regular. First and second heart sounds normal. No murmurs, rubs or gallops. Abdominal exam reveals normal bowel sounds, no masses, no organomegaly and no aortic enlargement. Extremities are nonedematous and both femoral and pedal pulses are normal.Examination of the skin revealed no evidence of significant rashes, suspicious appearing nevi or other concerning lesions.Neurologically, the patient is awake and alert and the patient does not have any focal neurological deficit. Cranial nerves are essentially intact. Results - Laboratory Findings CBC and BMP: 10/20/20 22:45 10/21/20 08:04 PT/INR, D-dimer PT 9.6 sec (9.0-12.0) 10/20/20 22:45 INR 0.9 (<1.2) 10/20/20 22:45 D-Dimer 0.44 mg/L FEU (<0.60) 10/22/20 11:38 Abnormal lab findings: Abnormal Labs 10/20/20 10/20/20 10/20/20 22:45 22:45 22:45 Lymphocytes # 0.6 L APTT 30.6 H Sodium 127 L Potassium 5.7 H Chloride 93 L Carbon Dioxide 19 L BUN 26 H Glucose 696 H* POC Glucose (mg/dL) Hemoglobin A1c ALT 73 H C-Reactive Protein 16.9 H Procalcitonin 10/20/20 10/20/20 10/21/20 22:45 23:00 00:00 Lymphocytes # APTT Sodium Potassium Chloride Carbon Dioxide BUN Glucose POC Glucose (mg/dL) >600 H >600 H Hemoglobin A1c ALT C-Reactive Protein Procalcitonin 0.25 H 10/21/20 10/21/20 10/21/20 01:48 02:58 04:04 Lymphocytes # APTT Sodium Potassium Chloride Carbon Dioxide BUN Glucose POC Glucose (mg/dL) 458 H 325 H 297 H Hemoglobin A1c ALT C-Reactive Protein Procalcitonin 10/21/20 10/21/20 10/21/20 04:53 05:00 06:02 Lymphocytes # APTT Sodium 135 L Potassium Chloride Carbon Dioxide BUN 23 H Glucose 255 H POC Glucose (mg/dL) 246 H 192 H Hemoglobin A1c ALT C-Reactive Protein Procalcitonin 10/21/20 10/21/20 10/21/20 08:04 08:04 11:52 Lymphocytes # APTT Sodium Potassium Chloride Carbon Dioxide BUN 22 H Glucose 111 H POC Glucose (mg/dL) 354 H Hemoglobin A1c 9.8 H ALT C-Reactive Protein Procalcitonin 10/21/20 10/21/20 10/21/20 14:25 16:35 21:10 Lymphocytes # APTT Sodium Potassium Chloride Carbon Dioxide BUN Glucose POC Glucose (mg/dL) 367 H 344 H 249 H Hemoglobin A1c ALT C-Reactive Protein Procalcitonin 10/22/20 10/22/20 10/22/20 07:22 11:38 12:15 Lymphocytes # APTT Sodium Potassium Chloride Carbon Dioxide BUN Glucose POC Glucose (mg/dL) 278 H 183 H Hemoglobin A1c ALT C-Reactive Protein 20.8 H Procalcitonin - Diagnostic Findings Chest x-ray: image reviewed CT scan - chest: image reviewed Assessment and Plan Plan: 1 acute COVID 19 infection with secondary complications including constitutional symptoms and a mild degree of pneumonia as seen on the CAT scan of the chest that showed limited bilateral groundglass pulmonary infiltrates. 2 shortness of breath and mild hypoxemia secondary to above. This is an acute hypoxic respiratory failure currently on 2 L of oxygen by nasal cannula 3 fever secondary to above 4 hypertension 5 gout 6 Steroid-induced hyperglycemia with possibly an underlying component of diabetes mellitus. Mother the patient is an HbA1c of 9.8 indicating an underlying diabetes mellitus. Plan Keep the patient on 2 L of oxygen by nasal cannula Monitor inflammatory markers Continue Decadron Complete a 5 day course of Remdesivir Blood sugar management per medicine. The patient has been started on Levemir insulin 45 units in addition to 10 units with meals and a slight scale coverage Lovenox for DVT prophylaxis. D-dimer is low at this point in time. We'll continue to follow.
[2020-10-22 17:07] LABS: Glucose,Whole Blood 332 mg/dL (75-99)
[2020-10-22] MEDS: ASCORBIC ACID 500 MG TAB PO SCH (20:21)
[2020-10-22] MEDS: CHOLECALCIFEROL 400 UNIT TAB PO SCH (20:21)
[2020-10-22] MEDS: ZINC SULFATE 220 MG CAP PO SCH (20:21)
[2020-10-22] MEDS: FAMOTIDINE 20 MG/2 ML VIAL IV SCH (20:26)
[2020-10-22] MEDS: ALBUTEROL HFA INHALER INHALATION SCH (20:30)
[2020-10-22 21:14] LABS: Glucose,Whole Blood 363 mg/dL (75-99)
[2020-10-22] MEDS: ACETAMINOPHEN IV (For NPO) 1,000 MG in EMPTY BAG 1 BAG IVPB PRN (21:23)
--- NOTE | 2020-10-22 22:43 | P.CONS ---
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 patient presenting to [facility] ER 2 days ago for evaluation of difficulty in breathing and this patient symptom has been going on for about a week and has been mostly weakness no energy and shortness of breath, patient also have a cough which is mild to moderate intensity but not bringing up any sputum as well nausea but no vomiting and no diarrhea patient apparently was diagnosed with a COVID-19 few days ago and the patient has been treated with steroid and Zithromax without any significant improvement hence he presented to the hospital 2 days ago on the presentation to the hospital the patient had a fever of 100.2249 within the few 100.7 this morning patient has been hypoxic requiring supplemental oxygen patient did have a normal white count with lymphopenia D-dimer has been normal creatinine was normal ALT 73 CRP 16.9 blood culture 0.25 patient did have a chest x-ray on admission minimal subsegmental atelectasis left midlung he did have a CT angiogram of the chest last evening with evidence of diffuse bilateral groundglass opacities suggestive of Covid pneumonia infectious disease was consulted for further management Review of Systems Positive point has been mentioned in the HPI rest of the systems are negative Past Medical History Past Medical History: GERD/Reflux, Hypertension Additional Past Medical History / Comment(s): gout History of Any Multi-Drug Resistant Organisms: None Reported Past Surgical History: Cholecystectomy Additional Past Surgical History / Comment(s): Cyst removed from left sinus 1994 Past Anesthesia/Blood Transfusion Reactions: No Reported Reaction Past Psychological History: No Psychological Hx Reported Additional Psychological History / Comment(s): Retired from the [employer]. 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 He is lives with family home with his . He has 4 adult children from the age of 26-22 of them currently live at home. One son is in the in [place] but he has not visited there. He relates that he has not traveled overseas since his time in the [employer], he was in [place]. He was stationed in multiple [facility] but has not traveled out of the [place] area in quite some time. He does occasionally visit his son in the state of [place], this is the last base that he was on before he retired. There are no animals within the home. He has no severe history of alcohol or recreational drug use or tobacco use. Smoking Status: Never smoker Past Alcohol Use History: None Reported Past Drug Use History: None Reported - Past Family History Mother Family Medical History: Dementia Additional Family Medical History / Comment(s): Father of myocardial infarction at the age of 62. He said her brother of an MT and he was in his 40s inspite excellent health. Medications and Allergies Home Medications Medication Instructions Recorded Confirmed Type Omeprazole [PriLOSEC] 40 mg PO DAILY 07/21/15 10/20/20 History Albuterol Sulfate [Albuterol 2 puff PO RT-Q6H PRN 10/20/20 10/20/20 History Sulfate Hfa] Azithromycin [Zithromax] See Taper PO DIRECTED 10/20/20 10/20/20 History predniSONE See Taper PO DIRECTED 10/20/20 10/20/20 History Ondansetron Odt [Zofran Odt] 4 mg PO Q8HR PRN #30 tab 10/21/20 Rx glipiZIDE [Glucotrol] 20 mg PO AC-BID #60 tablet 10/21/20 Rx lisinopriL 10 mg PO DAILY #0 10/21/20 10/20/20 Rx metFORMIN HCL [Glucophage] 500 mg PO BID #60 tab 10/21/20 Rx Allergies Allergy/AdvReac Type Severity Reaction Status Date / Time tramadol [From Ultram] Allergy Itching Verified 10/20/20 23:08 Physical Exam Vitals: Vital Signs Temp Pulse Resp BP Pulse Ox 10/22/20 20:00 98.6 F 79 18 127/63 98 10/22/20 15:14 99.4 F 78 16 133/74 96 10/22/20 11:45 99.7 F H 85 14 137/69 96 10/22/20 07:49 100.7 F H 81 18 152/75 98 10/22/20 04:00 99.7 F H 72 20 137/72 99 10/22/20 03:31 20 10/22/20 00:00 99.6 F 81 20 138/70 96 10/21/20 23:00 96 Intake and Output 10/22/20 10/22/20 10/22/20 06:59 14:59 22:59 Intake Total 2100 920 Output Total 375 Balance 1725 920 Intake: Intake, IV Titration 900 800 Amount Sodium Chloride 0.9% 1, 900 800 000 ml @ 100 mls/hr IV . Q10H [facility] Rx#:[id number] Oral 1200 120 Output: Urine 375 Other: Voiding Method Toilet # Voids 0 1 Weight 105.5 kg GENERAL DESCRIPTION: Middle-aged male lying in bed, no distress. No tachypnea or accessory muscle of respiration use. HEENT: Shows Pallor , no scleral icterus. Oral mucous membrane is dry. No pharyngeal erythema or thrush NECK: Trachea central, no thyromegaly. LUNGS: Unlabored breathing. Decreased intensity of breath sounds. No wheeze or crackle. HEART: S1, S2, regular rate and rhythm. No loud murmur ABDOMEN: Soft, no tenderness , guarding or rigidity, no organomegaly EXTREMITIES: No edema of feet. SKIN: No rash, no masses palpable. NEUROLOGICAL: The patient is awake, alert, oriented x3, mood and affect normal. Results CBC & Chem 7: 10/20/20 22:45 10/21/20 08:04 Labs: Abnormal Lab Results - Last 24 Hours (Table) 10/21/20 10/22/20 10/22/20 Range/Units 08:04 07:22 11:38 POC Glucose (mg/dL) 278 H (75-99) mg/dL Hemoglobin A1c 9.8 H (4.0-6.0) % C-Reactive Protein 20.8 H (<10.0) mg/L 10/22/20 10/22/20 10/22/20 Range/Units 12:15 16:55 20:21 POC Glucose (mg/dL) 183 H 332 H 363 H (75-99) mg/dL Hemoglobin A1c (4.0-6.0) % C-Reactive Protein (<10.0) mg/L Microbiology - Last 24 Hours (Table) 10/20/20 22:45 Blood Culture - Preliminary Blood No Growth after 24 hours Assessment and Plan Assessment: 1-patient presented to hospital clinic visit shortness of breath and generalized weakness fever with evidence of multifocal groundglass opacities likely secondary to covid 19 pneumonia failing outpatient treatment (1) Pneumonia due to COVID-19 virus Current Visit: Yes Status: Acute Code(s): U07.1 - COVID-19; J12.89 - OTHER VIRAL PNEUMONIA SNOMED Code(s): 238738032565899717 Plan: 1- patient will be treated with Remdisivir per protocol 2-dexamethasone 6 mg daily Lovenox and zinc sulfate 3-droplet isolation and respiratory support We will follow on clinical condition and cultures to further adjust medication if needed Thank you for this consultation will follow this patient with you Time with Patient: Greater than 30
[2020-10-23] MEDS: SODIUM CHLORIDE 0.9% 1,000 ML IV SCH (06:27)
[2020-10-23] MEDS: ACETAMINOPHEN IV (For NPO) 1,000 MG in EMPTY BAG 1 BAG IVPB PRN (06:49)
[2020-10-23] MEDS: ONDANSETRON ODT 4 MG TAB PO PRN (06:49)
[2020-10-23] MEDS ORDERED: INSULIN DETEMIR (LEVEMIR) 100 UNIT/ML SYR SQ SCH (07:00)
[2020-10-23 07:17] LABS: Glucose,Whole Blood 204 mg/dL (75-99)
[2020-10-23] MEDS: ALBUTEROL HFA INHALER INHALATION SCH ×4 (08:53→20:41)
[2020-10-23] MEDS: PANTOPRAZOLE 40 MG/10 ML VIAL IVP SCH ×2 (09:16→21:03)
[2020-10-23] MEDS: DEXAMETHASONE SOD PHOSPHATE 10 MG/ML 1 ML VIAL IV SCH (09:17)
[2020-10-23] MEDS: FAMOTIDINE 20 MG/2 ML VIAL IV SCH ×2 (09:17→21:02)
[2020-10-23] MEDS: ENOXAPARIN 40 MG/0.4 ML SYRINGE SQ SCH (09:17)
[2020-10-23] MEDS: INSULIN ASPART (NovoLOG) 100 UNIT/ML VIAL SQ SCH ×7 (09:18→21:02)
[2020-10-23] MEDS: MAG HYDROX/AL HYDROX/SIMETH 30 ML, diphenhydrAMINE ELIXIR 75 MG, LIDOCAINE VISCOUS 30 ML PO SCH ×9 (09:56→21:04)
[2020-10-23 10:17] LABS: HCT 38.5 % (39.0-53.0); HGB 13.6 gm/dL (13.0-17.5); MCH 28.1 pg (25.0-35.0); MCHC 35.3 g/dL (31.0-37.0); MCV 79.6 fL (80.0-100.0); Mean Platelet Volume 8.3; Platelet Count 115 k/uL (150-450); RBC 4.83 m/uL (4.30-5.90); RDW 12.9 % (11.5-15.5); WBC 3.9 k/uL (3.8-10.6)
[2020-10-23] MEDS ORDERED: guaiFENesin-DM 100-10MG/5ML 10 ML CUP PO PRN (10:26)
[2020-10-23 10:38] LABS: ALT 68 U/L (4-49); AST 64 U/L (17-59); African American GFR (CKD) >90 (>60 ml/min/1.73 sqM); Albumin 3.5 g/dL (3.5-5.0); Alkaline Phosphatase 58 U/L (38-126); Anion Gap 8 mmol/L; Blood Urea Nitrogen 12 mg/dL (9-20); Calcium 7.8 mg/dL (8.4-10.2); Carbon Dioxide 24 mmol/L (22-30); Chloride 101 mmol/L (98-107); Glucose 327 mg/dL (74-99); Non-African American GFR(CKD) >90 (>60 ml/min/1.73 sqM); Potassium 3.6 mmol/L (3.5-5.1); Sodium 133 mmol/L (137-145); Total Bilirubin 0.8 mg/dL (0.2-1.3); Total Protein 5.9 g/dL (6.3-8.2)
[2020-10-23 11:55] LABS: Glucose,Whole Blood 311 mg/dL (75-99)
--- NOTE | 2020-10-23 13:01 | ECHOF ---
Referral Reason:chest pain MEASUREMENTS -------- HEIGHT: 188.0 cm WEIGHT: 101.2 kg BP: 145/65 IVSd: 1.1 cm (0.6 - 1.1) LVIDd: 5.1 cm (3.9 - 5.3) LVPWd: 1.1 cm (0.6 - 1.1) EDV(Teich): 125 ml IVSs: 1.7 cm LVIDs: 3.2 cm LVPWs: 1.7 cm %IVS Thck: 56 % ESV(Teich): 42 ml EF(Teich): 66 % %FS: 37 % SV(Teich): 82 ml LA Diam: 3.6 cm (2.7 - 3.8) RVIDd: 3.0 cm (< 3.3) IVC: 24.96 mm LALs A4C: 5.4 cm LAAs A4C: 18.9 cm LAESV A-L A4C: 56 ml LAESV MOD A4C: 52 ml Ao Diam: 2.9 cm (2.0 - 3.7) AV Cusp: 2.1 cm (1.5 - 2.6) EPSS: 0.5 cm MV E [place]: 1.03 m/s MV DecT: 162 ms MV Dec [place]: 6.4 m/s MV A [place]: 0.93 m/s MV E/A Ratio: 1.11 MV PHT: 47 ms AV Vmax: 1.59 m/s AV maxP.07 mmHg TR Vmax: 1.98 m/s TR maxP.61 mmHg RAP: 15.00 mmHg RVSP: 30.61 mmHg MV EF SLOPE: 138.70 mm/s (70 - 150) MV EXCURSION: 17.01 mm (> 18.000) FINDINGS -------- Sinus rhythm. This was a technically adequate study. The left ventricular size is normal. There is borderline concentric left ventricular hypertrophy. Overall left ventricular systolic function is normal with, an EF between 60 - 65 %. The right ventricle is normal in size. The left atrial size is normal. The right atrium is normal in size. Interatrial and interventricular septum intact. The aortic valve is trileaflet and appears structurally normal. The mitral valve is normal. Mild tricuspid regurgitation present. Right ventricular systolic pressure is normal at < 35 mmHg. Trace/mild (physiologic) pulmonic regurgitation. The aortic root size is normal. The inferior vena cava is dilated with no significant inspiratory collapse which is consistent estima ino right atrial pressure of >15 mmHg. There is no pericardial effusion. CONCLUSIONS -------- 1. The left ventricular size is normal. 2. There is borderline concentric left ventricular hypertrophy. 3. Overall left ventricular systolic function is normal with, an EF between 60 - 65 %. 4. Mild tricuspid regurgitation present. 5. Trace/mild (physiologic) pulmonic regurgitation. 6. The inferior vena cava is dilated with no significant inspiratory collapse which is consistent est imated right atrial pressure of >15 mmHg. 7. There is no pericardial effusion. SEED SORTER: Renee Sarabia RDCS
[2020-10-23] MEDS: REMDESIVIR (EUA) 100 MG in SODIUM CHLORIDE 0.9% 250 ML IVPB SCH (13:08)
[2020-10-23] MEDS: guaiFENesin-Coden 100-10MG/5ML 10 ML CUP PO PRN ×2 (13:08→21:02)
[2020-10-23 14:42] VITALS: BMI 30.1
--- NOTE | 2020-10-23 15:09 | P.PN ---
Subjective 55-year-old male was admitted for Covid19. Patient is also new-onset diabetes mellitus. Patient didn't do well as today patient was quite a bit nauseous quite miserable today became hypoxic patient was started on Decadron infectious disease was consulted. And he became hypoxic pulmonary was consulted as well. Patient came in with blood sugars of 600 his blood sugars are expected to go up we'll increase the long-acting insulin to 45 units. and is not able to tolerate the diet. Patient was started on clear liquid diet instead of regular diet. 10/23/2020 Patient is still having severe nausea on 2 L of oxygen saturating well. Nolvia ent's hemoglobin A1c is 9.8. Patient is on Decadron at this time. Patient does have hiatal hernia with acid reflux. Constitutional: As mentioned in HPI Cardio vascular: denied any chest pain, palpitations Gastrointestinal as mentioned in HPI Pulmonary: As mentioned in HPI Neurologic denied any new focal deficits All inpatient medications were reviewed and appropriate changes in these medications as dictated in the interval history and assessment and plan. Objective - Vital Signs Vital signs: Vital Signs Temp 98.5 F 10/23/20 08:00 Pulse 79 10/23/20 12:00 Resp 20 10/23/20 12:00 BP 152/93 10/23/20 12:00 Pulse Ox 97 10/23/20 12:00 Intake & Output 10/22/20 10/23/20 10/23/20 18:59 06:59 18:59 Intake Total 120 1600 800 Balance 120 1600 800 Weight 106.5 kg 106.5 kg Intake: Intake, IV Titration 1600 Amount Sodium Chloride 0.9% 1, 1600 000 ml @ 100 mls/hr IV . Q10H [facility] Rx#:[id number] Oral 120 800 Other: Voiding Method Toilet Toilet # Voids 0 3 1 - Exam PHYSICAL EXAMINATION: GENERAL: The patient is alert and oriented x3, she is in distress because of access nausea. Well developed, well nourished. HEENT: Pupils are round and equally reacting to light. EOMI. No scleral icterus. No conjunctival pallor. Normocephalic, atraumatic. No pharyngeal erythema. No thyromegaly. CARDIOVASCULAR: S1 and S2 present. No murmurs, rubs, or gallops. PULMONARY: Chest is clear to auscultation, no wheezing or crackles. ABDOMEN: Soft, nontender, nondistended, normoactive bowel sounds. No palpable o rganomegaly. MUSCULOSKELETAL: No joint swelling or deformity. EXTREMITIES: No cyanosis, clubbing, or pedal edema. NEUROLOGICAL: Gross neurological examination did not reveal any focal deficits. SKIN: No rashes. Note: Because of COVID 19 isolation, some of the history and physical exam findings are indirect and obtained from nursing staff, and other physician examinations to avoid unnecessary contact with the patient. - Labs CBC & Chem 7: 10/23/20 09:18 10/23/20 09:18 Labs: Abnormal Lab Results - Last 24 Hours (Table) 10/22/20 10/22/20 10/23/20 Range/Units 16:55 20:21 07:16 Hct (39.0-53.0) % MCV (80.0-100.0) fL Plt Count (150-450) k/uL Sodium (137-145) mmol/L Glucose (74-99) mg/dL POC Glucose (mg/dL) 332 H 363 H 204 H (75-99) mg/dL Calcium (8.4-10.2) mg/dL AST (17-59) U/L ALT (4-49) U/L Total Protein (6.3-8.2) g/dL 10/23/20 10/23/20 10/23/20 Range/Units 09:18 09:18 11:54 Hct 38.5 L (39.0-53.0) % MCV 79.6 L (80.0-100.0) fL Plt Count 115 L (150-450) k/uL Sodium 133 L (137-145) mmol/L Glucose 327 H (74-99) mg/dL POC Glucose (mg/dL) 311 H (75-99) mg/dL Calcium 7.8 L (8.4-10.2) mg/dL AST 64 H (17-59) U/L ALT 68 H (4-49) U/L Total Protein 5.9 L (6.3-8.2) g/dL Microbiology - Last 24 Hours (Table) 10/20/20 22:45 Blood Culture - Preliminary Blood No Growth after 48 hours Assessment and Plan Plan: -Acute hypoxic respiratory failure secondary to Covid 19 pneumonia patient was started on Decadron and will need Remdesivir. Patient had an echocardiogram which showed dilated the IVC. The IV fluids will obtain a BMP tomorrow Hypoglycemia: New-onset diabetes mellitus: Patient is on long-acting insulin -Covid 19 pneumonia and hypoxia secondary to that patient is saturating well without any oxygen at this time will be discharged today patient will continue his steroid taper but will taper it faster than is advised by his PCP. -gastroesophageal reflux disease patient has hiatal hernia patient still having severe nausea and vomiting from this in the steroids along with viral infection. -Hypertension: Patient blood pressures are low normal, not receiving his DIANE inhibitor.
[2020-10-23 16:49] LABS: Glucose,Whole Blood 325 mg/dL (75-99)
--- NOTE | 2020-10-23 17:06 | P.PN ---
Subjective Progress Note Date: 10/23/20 Principal diagnosis: Acute COVID 19 pneumonia 55-year-old patient, presenting to the hospital because of complications of an acute: 90 related infection. The patient developed symptoms approximately a week ago. He developed generalized weakness, body aches, fatigue, tiredness, headaches and he was taking prednisone at home which obviously cause some disturbances blood sugar and the patient developed some hyperglycemia. Note that he has not been diagnosed with diabetes mellitus although this has been suspected and the patient developed increased polyuria and polydipsia while being on systemic prednisone. Subsequently, he started having increased shortness of breath and cough and he came into the hospital and he was hospitalized yesterday for: 90 related infection/pneumonia. He underwent a chest x-ray and subsequently a CAT scan of the chest in the emergency department that showed limited hazy groundglass pulmonary infiltrates bilaterally. He was getting up to the bathroom today when he became acutely short of breath and he desaturated. He is currently on 2 L of oxygen by nasal cannula. I saw this patient consultation. He is currently on Decadron 6 mg IV 24 hours. He was started on Remdesivir per protocol for a total of 5 days. He is currently receiving IV fluids with normal saline at the rate of 100 mL an hour. He is on Lovenox 40 mg subcu for DVT prophylaxis. In terms of his blood work, the patient's had a ferritin level of 265, LDH of 397, CRP of 16.9 which is up to 20.8 and a LEVEL OF 0.25. HIS BLOOD SUGAR WAS 696 AT A TIME OF HIS ADMISSION.. HE WAS GIVEN LONG-ACTING INSULIN AND BLOOD SUGARS UNDER MUCH BETTER CONTROL FOR NOW. LIVER FUNCTION TEST SHOWS AST OF 48, ALT OF 73, ALKALINE PHOSPHATASE OF 83 WITH A BILIRUBIN OF 1.1. TROPONINS ARE LESS THAN 0.012. The patient's d-dimer is at 0.44. The patient is currently on Lovenox for DVT prophylaxis. On 10/23/2020 patient seen in follow-up on selective care unit, he is resting co mfortably in bed, appears to be breathing comfortably, no acute distress, vital signs have been stable overnight, his last episode of fever was yesterday morning. Remains on 2 L of oxygen has pulse ox of 97%, will Probably further wean down his FiO2, does get exertional dyspnea, and cough, which is dry and nonproductive, no complaints of chest pain or palpitations. He is on day 2 of Remdesivir treatment, he is on prophylactic dose of Lovenox, he is on IV Decadron. The labs have been reviewed, showing blood cell count of 3.9, hemoglobin 13.6, his d-dimer was 0.44, his sodium is 133, the rest of the electrolytes and renal profile were unremarkable, his LDH was within normal limits, CRP has trended up some on yesterday's labs, not significantly elevated at 20.8, he states his taste is slightly altered, but no nausea vomiting or diarrhea, or abdominal pain and Objective - Vital Signs Vital signs: Vital Signs Temp 98.5 F 10/23/20 08:00 Pulse 79 10/23/20 12:00 Resp 20 10/23/20 12:00 BP 152/93 10/23/20 12:00 Pulse Ox 97 10/23/20 12:00 Intake & Output 10/22/20 10/23/20 10/23/20 18:59 06:59 18:59 Intake Total 120 1600 800 Balance 120 1600 800 Weight 106.5 kg 106.5 kg Intake: Intake, IV Titration 1600 Amount Sodium Chloride 0.9% 1, 1600 000 ml @ 100 mls/hr IV . Q10H [facility], [facility] Rx#:[id number] Oral 120 800 Other: Voiding Method Toilet Toilet # Voids 0 3 1 - Exam GENERAL EXAM: Alert, active, very pleasant, 54-year-old white male, on 2 L of oxygen with sats 97% comfortable in no apparent distress. HEAD: Normocephalic/atraumatic. EYES: Normal reaction of pupils, equal size. Conjunctiva pink, sclera white. NOSE: Clear with pink turbinates. THROAT: No erythema or exudates. NECK: No masses, no JVD, no thyroid enlargement, no adenopathy. CHEST: No chest wall deformity. Symmetrical expansion. LUNGS: Equal air entry with no crackles, wheeze, rhonchi or dullness. CVS: Regular rate and rhythm, normal S1 and S2, no gallops, no murmurs, no rubs ABDOMEN: Soft, nontender. No hepatosplenomegaly, normal bowel sounds, no guarding or rigidity. EXTREMITIES: No clubbing, no edema, no cyanosis, 2+ pulses and upper and lower extremities. MUSCULOSKELETAL: Muscle strength and tone normal. SPINE: No scoliosis or deformity SKIN: No rashes CENTRAL NERVOUS SYSTEM: Alert and oriented -3. No focal deficits, tone is normal in all 4 extremities. PSYCHIATRIC: Alert and oriented -3. Appropriate affect. Intact judgment and insight. - Labs CBC & Chem 7: 10/23/20 09:18 10/23/20 09:18 Labs: Abnormal Lab Results - Last 24 Hours (Table) 10/22/20 10/22/20 10/23/20 Range/Units 16:55 20:21 07:16 Hct (39.0-53.0) % MCV (80.0-100.0) fL Plt Count (150-450) k/uL Sodium (137-145) mmol/L Glucose (74-99) mg/dL POC Glucose (mg/dL) 332 H 363 H 204 H (75-99) mg/dL Calcium (8.4-10.2) mg/dL AST (17-59) U/L ALT (4-49) U/L Total Protein (6.3-8.2) g/dL 10/23/20 10/23/20 10/23/20 Range/Units 09:18 09:18 11:54 Hct 38.5 L (39.0-53.0) % MCV 79.6 L (80.0-100.0) fL Plt Count 115 L (150-450) k/uL Sodium 133 L (137-145) mmol/L Glucose 327 H (74-99) mg/dL POC Glucose (mg/dL) 311 H (75-99) mg/dL Calcium 7.8 L (8.4-10.2) mg/dL AST 64 H (17-59) U/L ALT 68 H (4-49) U/L Total Protein 5.9 L (6.3-8.2) g/dL 10/23/20 Range/Units 16:47 Hct (39.0-53.0) % MCV (80.0-100.0) fL Plt Count (150-450) k/uL Sodium (137-145) mmol/L Glucose (74-99) mg/dL POC Glucose (mg/dL) 325 H (75-99) mg/dL Calcium (8.4-10.2) mg/dL AST (17-59) U/L ALT (4-49) U/L Total Protein (6.3-8.2) g/dL Microbiology - Last 24 Hours (Table) 10/20/20 22:45 Blood Culture - Preliminary Blood No Growth after 48 hours Assessment and Plan Plan: Assessment: 1 acute COVID 19 infection with secondary complications including constitutional symptoms and a mild degree of pneumonia as seen on the CAT scan of the chest that showed limited bilateral groundglass pulmonary infiltrates, started on Remdesivir treatment on 10/22/2020 2 shortness of breath and mild hypoxemia secondary to above. This is an acute hypoxic respiratory failure currently on 2 L of oxygen by nasal cannula 3 fever secondary to above 4 hypertension 5 gout 6 Steroid-induced hyperglycemia with possibly an underlying component of diabetes mellitus. Mother the patient is an HbA1c of 9.8 indicating an underlying diabetes mellitus. 7 hyponatremia possibly hypovolemic Plan: We'll continue with Remdesivir treatment, continue with IV steroids, will continue with Pepcid, prophylactic dose of Lovenox. Follow-up LDH, CRP tomorrow, wean FiO2, monitor oxygen dependent, febrile. Monitor blood sugars, and blood sugar management per attending hospitalist service I performed a history & physical examination of the patient and discussed their management with my nurse practitioner, Kavya Mead. I reviewed the nurse practitioner's note and agree with the documented findings and plan of care. Lung sounds are positive for basilar crackles. The findings and the impression was discussed with the patient. I attest to the documentation by the nurse practitioner. Time with Patient: Less than 30
[2020-10-23 20:28] LABS: Glucose,Whole Blood 317 mg/dL (75-99)
[2020-10-23] MEDS: CHOLECALCIFEROL 400 UNIT TAB PO SCH ×2 (21:01→21:28)
[2020-10-23] MEDS: ASCORBIC ACID 500 MG TAB PO SCH ×2 (21:01→21:28)
[2020-10-23] MEDS: ZINC SULFATE 220 MG CAP PO SCH ×2 (21:03→21:28)
[2020-10-23] MEDS: ACETAMINOPHEN ORAL SUSP (PEDS) 3,840 MG/120 ML BOTTLE PO PRN (22:27)
--- NOTE | 2020-10-24 00:08 | PN ---
PROGRESS NOTE DATE OF SERVICE: 10/23/2020 REASON FOR FOLLOWUP: Acute COVID-19 pneumonia. INTERVAL HISTORY: The patient is currently afebrile. Still not feeling as good though. The patient denies having any chest pain. He has shortness of breath on minimal exertion. Did have a cough, not bringing up any sputum. No abdominal pain or diarrhea. PHYSICAL EXAMINATION: Blood pressure 130/66, pulse of 80, temperature 97.6. He is 97% on 2 L nasal cannula. General description is a middle-aged male up in the bed in no distress. RESPIRATORY SYSTEM: Unlabored breathing, decreased intensity of breath sounds. No wheeze. HEART: S1, S2. Regular rate and rhythm. ABDOMEN: Soft, no tenderness. LABS: Hemoglobin 13.6, white count of 3.9, BUN of 12, creatinine 0.70. Liver enzymes mildly elevated. DIAGNOSTIC IMPRESSION AND PLAN: Patient with acute COVID-19 pneumonia in this patient currently covered with remdesivir, dexamethasone, Lovenox along with zinc to continue along with respiratory support. Will monitor clinical course closely. MMODL / IJN: [id number] /
[2020-10-24] MEDS: INSULIN DETEMIR (LEVEMIR) 100 UNIT/ML SYR SQ SCH (07:03)
[2020-10-24] MEDS: INSULIN ASPART (NovoLOG) 100 UNIT/ML VIAL SQ SCH ×7 (07:03→21:11)
[2020-10-24 07:04] LABS: Glucose,Whole Blood 145 mg/dL (75-99)
[2020-10-24 09:50] LABS: Glucose,Whole Blood 202 mg/dL (75-99)
[2020-10-24] MEDS: FAMOTIDINE 20 MG/2 ML VIAL IV SCH ×2 (09:50→21:09)
[2020-10-24] MEDS: PANTOPRAZOLE 40 MG/10 ML VIAL IVP SCH ×2 (09:50→21:09)
[2020-10-24] MEDS: DEXAMETHASONE SOD PHOSPHATE 10 MG/ML 1 ML VIAL IV SCH (09:50)
[2020-10-24] MEDS: ENOXAPARIN 40 MG/0.4 ML SYRINGE SQ SCH (09:50)
[2020-10-24] MEDS: MAG HYDROX/AL HYDROX/SIMETH 30 ML, diphenhydrAMINE ELIXIR 75 MG, LIDOCAINE VISCOUS 30 ML PO SCH ×9 (09:51→21:21)
[2020-10-24] MEDS: ALBUTEROL HFA INHALER INHALATION SCH ×4 (10:58→22:02)
[2020-10-24 11:05] LABS: C Reactive Protein 19.8 mg/L (<10.0)
--- NOTE | 2020-10-24 11:39 | P.PN ---
Subjective 55-year-old male was admitted for Covid19. Patient is also new-onset diabetes mellitus. Patient didn't do well as today patient was quite a bit nauseous quite miserable today became hypoxic patient was started on Decadron infectious disease was consulted. And he became hypoxic pulmonary was consulted as well. Patient came in with blood sugars of 600 his blood sugars are expected to go up we'll increase the long-acting insulin to 45 units. and is not able to tolerate the diet. Patient was started on clear liquid diet instead of regular diet. 10/23/2020 Patient is still having severe nausea on 2 L of oxygen saturating well. Nolvia ent's hemoglobin A1c is 9.8. Patient is on Decadron at this time. Patient does have hiatal hernia with acid reflux. 10/24/2020 Still complaining of shortness of breath and was saturating well on 2 L of oxygen. Patient will complete his Remdesivir October 26 and the patient is wishing to stay until then. Constitutional: As mentioned in HPI Cardio vascular: denied any chest pain, palpitations Gastrointestinal as mentioned in HPI Pulmonary: As mentioned in HPI Neurologic denied any new focal deficits All inpatient medications were reviewed and appropriate changes in these medications as dictated in the interval history and assessment and plan. Objective - Vital Signs Vital signs: Vital Signs Temp 98.9 F 10/24/20 04:00 Pulse 96 10/24/20 08:00 Resp 18 10/24/20 08:00 BP 141/71 10/24/20 08:00 Pulse Ox 96 10/24/20 08:00 Intake & Output 10/23/20 10/24/20 10/24/20 18:59 06:59 18:59 Intake Total 1040 240 Output Total 250 Balance 1040 -10 Weight 106.5 kg 105 kg Intake: Oral 1040 240 Output: Urine 250 Other: Voiding Method Toilet Toilet Toilet # Voids 1 1 - Exam PHYSICAL EXAMINATION: GENERAL: The patient is alert and oriented x3, she is in distress because of access nausea. Well developed, well nourished. HEENT: Pupils are round and equally reacting to light. EOMI. No scleral icterus. No conjunctival pallor. Normocephalic, atraumatic. No pharyngeal erythema. No thyromegaly. CARDIOVASCULAR: S1 and S2 present. No murmurs, rubs, or gallops. PULMONARY: Chest is clear to auscultation, no wheezing or crackles. ABDOMEN: Soft, nontender, nondistended, normoactive bowel sounds. No palpable organomegaly. MUSCULOSKELETAL: No joint swelling or deformity. EXTREMITIES: No cyanosis, clubbing, or pedal edema. NEUROLOGICAL: Gross neurological examination did not reveal any focal deficits. SKIN: No rashes. Note: Because of COVID 19 isolation, some of the history and physical exam findings are indirect and obtained from nursing staff, and other physician examinations to avoid unnecessary contact with the patient. - Labs CBC & Chem 7: 10/23/20 09:18 10/23/20 09:18 Labs: Abnormal Lab Results - Last 24 Hours (Table) 10/23/20 10/23/20 10/23/20 Range/Units 11:54 16:47 20:25 POC Glucose (mg/dL) 311 H 325 H 317 H (75-99) mg/dL Lactate Dehydrogenase (313-618) U/L C-Reactive Protein (<10.0) mg/L 10/24/20 10/24/20 10/24/20 Range/Units 07:02 09:45 10:05 POC Glucose (mg/dL) 145 H 202 H (75-99) mg/dL Lactate Dehydrogenase 852 H (313-618) U/L C-Reactive Protein 19.8 H (<10.0) mg/L Microbiology - Last 24 Hours (Table) 10/20/20 22:45 Blood Culture - Preliminary Blood No Growth after 72 hours Assessment and Plan Plan: -Acute hypoxic respiratory failure secondary to Covid 19 pneumonia patient was started on Decadron and on Remdesivir. Hypoglycemia: New-onset diabetes mellitus: Patient is on long-acting insulin -Covid 19 pneumonia and hypoxia secondary to that -gastroesophageal reflux disease patient has hiatal hernia patient is tolerating the softer diet okay. -Hypertension: Patient blood pressures are low normal, not receiving his DIANE inhibitor.
[2020-10-24 11:49] LABS: Glucose,Whole Blood 258 mg/dL (75-99)
[2020-10-24] MEDS: REMDESIVIR (EUA) 100 MG in SODIUM CHLORIDE 0.9% 250 ML IVPB SCH (12:28)
[2020-10-24] MEDS: ONDANSETRON 4 MG/2 ML VIAL IVP PRN (12:32)
[2020-10-24] MEDS: ACETAMINOPHEN ORAL SUSP (PEDS) 3,840 MG/120 ML BOTTLE PO PRN ×2 (12:36→23:55)
[2020-10-24 16:41] LABS: Glucose,Whole Blood 314 mg/dL (75-99)
[2020-10-24] MEDS: guaiFENesin-Coden 100-10MG/5ML 10 ML CUP PO PRN ×2 (17:48→23:55)
--- NOTE | 2020-10-24 19:01 | P.PN ---
Subjective Progress Note Date: 10/24/20 Principal diagnosis: Acute covid 19 pneumonitis. 55-year-old patient, presenting to the hospital because of complications of an acute: 90 related infection. The patient developed symptoms approximately a week ago. He developed generalized weakness, body aches, fatigue, tiredness, headaches and he was taking prednisone at home which obviously cause some disturbances blood sugar and the patient developed some hyperglycemia. Note that he has not been diagnosed with diabetes mellitus although this has been suspected and the patient developed increased polyuria and polydipsia while being on systemic prednisone. Subsequently, he started having increased shortness of breath and cough and he came into the hospital and he was hospitalized yesterday for: 90 related infection/pneumonia. He underwent a chest x-ray and subsequently a CAT scan of the chest in the emergency department that showed limited hazy groundglass pulmonary infiltrates bilaterally. He was getting up to the bathroom today when he became acutely short of breath and he desaturated. He is currently on 2 L of oxygen by nasal cannula. I saw this patient consultation. He is currently on Decadron 6 mg IV 24 hours. He was started on Remdesivir per protocol for a total of 5 days. He is currently rec eiving IV fluids with normal saline at the rate of 100 mL an hour. He is on Lovenox 40 mg subcu for DVT prophylaxis. In terms of his blood work, the patient's had a ferritin level of 265, LDH of 397, CRP of 16.9 which is up to 20.8 and a LEVEL OF 0.25. HIS BLOOD SUGAR WAS 696 AT A TIME OF HIS ADMISSION.. HE WAS GIVEN LONG-ACTING INSULIN AND BLOOD SUGARS UNDER MUCH BETTER CONTROL FOR NOW. LIVER FUNCTION TEST SHOWS AST OF 48, ALT OF 73, ALKALINE PHOSPHATASE OF 83 WITH A BILIRUBIN OF 1.1. TROPONINS ARE LESS THAN 0.012. The patient's d-dimer is at 0.44. The patient is currently on Lovenox for DVT prophylaxis. On 10/23/2020 patient seen in follow-up on selective care unit, he is resting comfortably in bed, appears to be breathing comfortably, no acute distress, vital signs have been stable overnight, his last episode of fever was yesterday morning. Remains on 2 L of oxygen has pulse ox of 97%, will Probably further wean down his FiO2, does get exertional dyspnea, and cough, which is dry and nonproductive, no complaints of chest pain or palpitations. He is on day 2 of Remdesivir treatment, he is on prophylactic dose of Lovenox, he is on IV Decadron. The labs have been reviewed, showing blood cell count of 3.9, hemoglobin 13.6, his d-dimer was 0.44, his sodium is 133, the rest of the electrolytes and renal profile were unremarkable, his LDH was within normal limits, CRP has trended up some on yesterday's labs, not significantly elevated at 20.8, he states his taste is slightly altered, but no nausea vomiting or diarrhea, or abdominal pain Reevaluated today on 10/24/20, patient is feeling better, continues to have intermittent cough, still receiving treatment for his pneumonitis. Definite improvement, but not back to baseline. Patient remains on room air, O2 s aturations 97%. His temp is 98.6, and he is hemodynamically stable. Markers including LDH and C-reactive protein remain high 852 and 19.8 respectively. Objective - Vital Signs Vital signs: Vital Signs Temp 98.6 F 10/24/20 16:00 Pulse 70 10/24/20 16:00 Resp 18 10/24/20 16:00 BP 146/71 10/24/20 16:00 Pulse Ox 97 10/24/20 16:00 Intake & Output 10/23/20 10/24/20 10/24/20 18:59 06:59 18:59 Intake Total 1040 720 Output Total 550 Balance 1040 170 Weight 106.5 kg 105 kg Intake: Oral 1040 720 Output: Urine 550 Other: Voiding Method Toilet Toilet Toilet # Voids 1 1 - Exam GENERAL EXAM: Alert, active, very pleasant, 54-year-old white male, on room air. HEAD: Normocephalic/atraumatic. ENT: The neck masses no JVD no stridor. CHEST: No chest wall deformity. Symmetrical expansion. LUNGS: Equal air entry with no crackles, wheeze, rhonchi or dullness. CVS: Regular rate and rhythm, normal S1 and S2, no gallops, no murmurs, no rubs ABDOMEN: soft and nontender pneumonia no rebound EXTREMITIES: No clubbing, no edema, no cyanosis, 2+ pulses and upper and lower extremities. SKIN: No rashes CENTRAL NERVOUS SYSTEM: Alert and oriented -3. No focal deficits, tone is normal in all 4 extremities. PSYCHIATRIC: Normal mood, affect and normal mental status examination - Labs CBC & Chem 7: 10/23/20 09:18 10/23/20 09:18 Labs: Abnormal Lab Results - Last 24 Hours (Table) 10/23/20 10/24/20 10/24/20 Range/Units 20:25 07:02 09:45 POC Glucose (mg/dL) 317 H 145 H 202 H (75-99) mg/dL Lactate Dehydrogenase (313-618) U/L C-Reactive Protein (<10.0) mg/L 10/24/20 10/24/20 10/24/20 Range/Units 10:05 11:40 16:29 POC Glucose (mg/dL) 258 H 314 H (75-99) mg/dL Lactate Dehydrogenase 852 H (313-618) U/L C-Reactive Protein 19.8 H (<10.0) mg/L Microbiology - Last 24 Hours (Table) 10/20/20 22:45 Blood Culture - Preliminary Blood No Growth after 72 hours Assessment and Plan Assessment: Impression: Acute covid 19 pneumonitis Acute hypoxic respiratory failure secondary to above Hypertension Hypovolemic hyponatremia Steroids induced hyperglycemia Recommendation: Continue present treatment plan, Consider discharge planning in the next 24-48 hours. We'll continue to follow. Time with Patient: Less than 30
[2020-10-24 20:20] LABS: Glucose,Whole Blood 315 mg/dL (75-99)
[2020-10-24] MEDS: ASCORBIC ACID 500 MG TAB PO SCH (21:20)
[2020-10-24] MEDS: ZINC SULFATE 220 MG CAP PO SCH (21:21)
[2020-10-24] MEDS: CHOLECALCIFEROL 400 UNIT TAB PO SCH (21:21)
--- NOTE | 2020-10-24 23:13 | PN ---
PROGRESS NOTE DATE OF SERVICE: 10/24/2020 REASON FOR FOLLOWUP: Acute COVID-19 pneumonia. INTERVAL HISTORY: The patient is currently afebrile. He has been complaining of chest pain and difficulty taking a deep breath. No nausea, no vomiting. No abdominal pain or diarrhea. PHYSICAL EXAMINATION: Blood pressure 146/71 with a pulse of 70, temperature 98.6. He is 97% on room air. General description is a middle-aged male up in the chair in no distress. RESPIRATORY SYSTEM: Unlabored breathing with decreased breath sounds at the base. No wheeze. HEART: S1, S2. Regular rate and rhythm. ABDOMEN: Soft. No tenderness. LAB: D-dimer is 0.49. LDH is 852 with CRP 19.8. DIAGNOSTIC IMPRESSION AND PLAN: Patient with acute COVID-19 pneumonia in this patient currently covered with remdesivir, dexamethasone, Lovenox and zinc; to continue along with respiratory support. Will monitor his clinical course closely. Continue with supportive care. MMODL / IJN: [id number] /
[2020-10-25 07:13] LABS: Glucose,Whole Blood 139 mg/dL (75-99)
[2020-10-25] MEDS: ALBUTEROL HFA INHALER INHALATION SCH ×4 (08:22→20:17)
--- NOTE | 2020-10-25 08:34 | XR ---
EXAMINATION TYPE: XR chest 1V portable DATE OF EXAM: 10/25/2020 HISTORY: COVID 19 COMPARISON: 10/20/2020 TECHNIQUE: Single view of the chest is submitted. FINDINGS: Demonstrated are scattered senescent parenchymal change. Patchy perihilar and basilar infiltrates are noted. Correlate for Covid 19 pneumonia. The heart is stable. Hilar and mediastinal structures are within normal limits. Degenerative changes are seen of the dorsal spine. IMPRESSION: 1. Patchy perihilar and basilar infiltrates are noted. Correlate for Covid 19 pneumonia.
[2020-10-25] MEDS: ENOXAPARIN 40 MG/0.4 ML SYRINGE SQ SCH (08:52)
[2020-10-25] MEDS: INSULIN ASPART (NovoLOG) 100 UNIT/ML VIAL SQ SCH ×7 (08:53→21:06)
[2020-10-25] MEDS: PANTOPRAZOLE 40 MG/10 ML VIAL IVP SCH (08:53)
[2020-10-25] MEDS: INSULIN DETEMIR (LEVEMIR) 100 UNIT/ML SYR SQ SCH (08:53)
[2020-10-25] MEDS: MAG HYDROX/AL HYDROX/SIMETH 30 ML, diphenhydrAMINE ELIXIR 75 MG, LIDOCAINE VISCOUS 30 ML PO SCH ×6 (09:44→17:38)
[2020-10-25] MEDS: DEXAMETHASONE SOD PHOSPHATE 10 MG/ML 1 ML VIAL IV SCH (09:56)
[2020-10-25] MEDS: FAMOTIDINE 20 MG/2 ML VIAL IV SCH (09:56)
[2020-10-25 11:36] LABS: Glucose,Whole Blood 242 mg/dL (75-99)
[2020-10-25] MEDS: REMDESIVIR (EUA) 100 MG in SODIUM CHLORIDE 0.9% 250 ML IVPB SCH (12:49)
--- NOTE | 2020-10-25 14:05 | P.PN ---
Subjective Progress Note Date: 10/25/20 Principal diagnosis: Acute COVID 19 pneumonia 55-year-old patient, presenting to the hospital because of complications of an acute: 90 related infection. The patient developed symptoms approximately a week ago. He developed generalized weakness, body aches, fatigue, tiredness, headaches and he was taking prednisone at home which obviously cause some disturbances blood sugar and the patient developed some hyperglycemia. Note that he has not been diagnosed with diabetes mellitus although this has been suspected and the patient developed increased polyuria and polydipsia while being on systemic prednisone. Subsequently, he started having increased shortness of breath and cough and he came into the hospital and he was hospitalized yesterday for: 90 related infection/pneumonia. He underwent a chest x-ray and subsequently a CAT scan of the chest in the emergency department that showed limited hazy groundglass pulmonary infiltrates bilaterally. He was getting up to the bathroom today when he became acutely short of breath and he desaturated. He is currently on 2 L of oxygen by nasal cannula. I saw this patient consultation. He is currently on Decadron 6 mg IV 24 hours. He was started on Remdesivir per protocol for a total of 5 days. He is currently receiving IV fluids with normal saline at the rate of 100 mL an hour. He is on Lovenox 40 mg subcu for DVT prophylaxis. In terms of his blood work, the patient's had a ferritin level of 265, LDH of 397, CRP of 16.9 which is up to 20.8 and a LEVEL OF 0.25. HIS BLOOD SUGAR WAS 696 AT A TIME OF HIS ADMISSION.. HE WAS GIVEN LONG-ACTING INSULIN AND BLOOD SUGARS UNDER MUCH BETTER CONTROL FOR NOW. LIVER FUNCTION TEST SHOWS AST OF 48, ALT OF 73, ALKALINE PHOSPHATASE OF 83 WITH A BILIRUBIN OF 1.1. TROPONINS ARE LESS THAN 0.012. The patient's d-dimer is at 0.44. The patient is currently on Lovenox for DVT prophylaxis. On 10/23/2020 patient seen in follow-up on selective care unit, he is resting co mfortably in bed, appears to be breathing comfortably, no acute distress, vital signs have been stable overnight, his last episode of fever was yesterday morning. Remains on 2 L of oxygen has pulse ox of 97%, will Probably further wean down his FiO2, does get exertional dyspnea, and cough, which is dry and nonproductive, no complaints of chest pain or palpitations. He is on day 2 of Remdesivir treatment, he is on prophylactic dose of Lovenox, he is on IV Decadron. The labs have been reviewed, showing blood cell count of 3.9, hemoglobin 13.6, his d-dimer was 0.44, his sodium is 133, the rest of the electrolytes and renal profile were unremarkable, his LDH was within normal limits, CRP has trended up some on yesterday's labs, not significantly elevated at 20.8, he states his taste is slightly altered, but no nausea vomiting or diarrhea, or abdominal pain On 10/25/2020 patient seen in follow-up on Gen. medical surgical floor, he is awake and alert, oriented 3, denies any worsening dyspnea, today is day 4 of Remdesivir treatment, he is on room air pulse ox is 96%, overall he is feeling better, mental crackles on physical exam, no completes of chest discomfort, no palpitations, hemodynamically stable, no fever or chills, still has exertional dyspnea and cough. Today's chest x-ray shows patchy perihilar and basilar infiltrates. On yesterday's labs his LDH had trended up some to 852, CRP was relatively stable at 19.8. Objective - Vital Signs Vital signs: Vital Signs Temp 97.9 F 10/25/20 12:22 Pulse 67 10/25/20 12:22 Resp 17 10/25/20 12:22 BP 146/83 10/25/20 12:22 Pulse Ox 96 10/25/20 12:22 Intake & Output 10/24/20 10/25/20 10/25/20 18:59 06:59 18:59 Intake Total 720 590 Output Total 550 Balance 170 590 Intake: Oral 720 590 Output: Urine 550 Other: Voiding Method Toilet Toilet Toilet # Voids 2 - Exam GENERAL EXAM: Alert, active, very pleasant, 54-year-old white male, on room air with a sat 97% comfortable in no apparent distress. HEAD: Normocephalic/atraumatic. EYES: Normal reaction of pupils, equal size. Conjunctiva pink, sclera white. NOSE: Clear with pink turbinates. THROAT: No erythema or exudates. NECK: No masses, no JVD, no thyroid enlargement, no adenopathy. CHEST: No chest wall deformity. Symmetrical expansion. LUNGS: Equal air entry with no crackles, wheeze, rhonchi or dullness. CVS: Regular rate and rhythm, normal S1 and S2, no gallops, no murmurs, no rubs ABDOMEN: Soft, nontender. No hepatosplenomegaly, normal bowel sounds, no guarding or rigidity. EXTREMITIES: No clubbing, no edema, no cyanosis, 2+ pulses and upper and lower extremities. MUSCULOSKELETAL: Muscle strength and tone normal. SPINE: No scoliosis or deformity SKIN: No rashes CENTRAL NERVOUS SYSTEM: Alert and oriented -3. No focal deficits, tone is normal in all 4 extremities. PSYCHIATRIC: Alert and oriented -3. Appropriate affect. Intact judgment and insight. - Labs CBC & Chem 7: 10/23/20 09:18 10/23/20 09:18 Labs: Abnormal Lab Results - Last 24 Hours (Table) 10/24/20 10/24/20 10/25/20 Range/Units 16:29 20:16 07:12 POC Glucose (mg/dL) 314 H 315 H 139 H (75-99) mg/dL 10/25/20 Range/Units 11:34 POC Glucose (mg/dL) 242 H (75-99) mg/dL Microbiology - Last 24 Hours (Table) 10/20/20 22:45 Blood Culture - Preliminary Blood No Growth after 96 hours Assessment and Plan Plan: Assessment: 1 acute COVID 19 infection with secondary complications including constitutional symptoms and a mild degree of pneumonia as seen on the CAT scan of the chest that showed limited bilateral groundglass pulmonary infiltrates, started on Remdesivir treatment on 10/22/2020 2 shortness of breath and mild hypoxemia secondary to above. This is an acute hypoxic respiratory failure currently on 2 L of oxygen by nasal cannula 3 fever secondary to above 4 hypertension 5 gout 6 Steroid-induced hyperglycemia with possibly an underlying component of diabetes mellitus. Mother the patient is an HbA1c of 9.8 indicating an underlying diabetes mellitus. 7 hyponatremia possibly hypovolemic Plan: Continue current medical treatment, clinically patient is doing well, he is now on room air, he will receive his fourth dose of Remdesivir today, afebrile, his chest x-rays here with him and reviewed and shows abnormal worsening patchy perihilar and basilar infiltrates compared to his admission chest x-ray on 10/20/2020, however clinically he is improving, tachypnea has improved, vital signs have been stable, tomorrow he'll finish Remdesivir course and remaines stable can be considered for discharge home I performed a history & physical examination of the patient and discussed their management with my nurse practitioner, Kavya Mead. I reviewed the nurse practitioner's note and agree with the documented findings and plan of care. Lung sounds are positive for basilar crackles. The findings and the impression was discussed with the patient. I attest to the documentation by the nurse practitioner. Time with Patient: Less than 30
[2020-10-25 17:16] LABS: Glucose,Whole Blood 295 mg/dL (75-99)
[2020-10-25] MEDS: PANTOPRAZOLE 40 MG TABLET PO SCH (17:39)
[2020-10-25] MEDS: ONDANSETRON 4 MG/2 ML VIAL IVP PRN (18:02)
[2020-10-25 20:16] LABS: Glucose,Whole Blood 303 mg/dL (75-99)
[2020-10-25] MEDS: guaiFENesin-Coden 100-10MG/5ML 10 ML CUP PO PRN (21:05)
[2020-10-25] MEDS: ASCORBIC ACID 500 MG TAB PO SCH (21:14)
[2020-10-25] MEDS: CHOLECALCIFEROL 400 UNIT TAB PO SCH (21:14)
[2020-10-25] MEDS: ZINC SULFATE 220 MG CAP PO SCH (21:14)
[2020-10-26] MEDS: MAG HYDROX/AL HYDROX/SIMETH 30 ML, diphenhydrAMINE ELIXIR 75 MG, LIDOCAINE VISCOUS 30 ML PO SCH ×12 (00:03→23:33)
--- NOTE | 2020-10-26 01:29 | P.PN ---
Subjective Progress Note Date: 10/25/20 55-year-old male was admitted for Covid19. Patient is also new-onset diabetes mellitus. Patient didn't do well as today patient was quite a bit nauseous quite miserable today became hypoxic patient was started on Decadron infectious disease was consulted. And he became hypoxic pulmonary was consulted as well. Patient came in with blood sugars of 600 his blood sugars are expected to go up we'll increase the long-acting insulin to 45 units. and is not able to tolerate the diet. Patient was started on clear liquid diet instead of regular diet. 10/23/2020 Patient is still having severe nausea on 2 L of oxygen saturating well. Patient's hemoglobin A1c is 9.8. Patient is on Decadron at this time. Patient does have hiatal hernia with acid reflux. 10/24/2020 Still complaining of shortness of breath and was saturating well on 2 L of oxygen. Patient will complete his Remdesivir October 26 and the patient is wishing to stay until then. Constitutional: As mentioned in HPI Cardio vascular: denied any chest pain, palpitations Gastrointestinal as mentioned in HPI Pulmonary: As mentioned in HPI Neurologic denied any new focal deficits All inpatient medications were reviewed and appropriate changes in these medications as dictated in the interval history and assessment and plan. 10/25/20 Patient seen in follow up and continues to have shortness of breath with a persistent dry cough with little phlegm production. Patient is currently receiving dexamethasone, lovenox, and remdesivir with tomorrow being his last dose of treatment. ID and pulmonary following. Patient continues to have intermittent nausea with little appetite and generalized weakness and fatigue. Patient is 96% on room air and in no acute respiratory distress. Patient continues to use incentive spirometer. Blood sugars elevated and will continue with long acting, pre-meal insulin, and sliding scale at this time. Review of systems: Constitutional: Reports weakness and fatigue Cardio: No reports of chest pain or palpitations Respiratory: Reports shortness of breath and persistent cough GI: reports intermittent nausea with no vomiting, reports diarrhea : no reports of dysuria or retention Neurovascular: No reports of numbness All medications have been reviewed. Objective - Vital Signs Vital signs: Vital Signs Temp 97.9 F 10/25/20 12:22 Pulse 67 10/25/20 12:22 Resp 17 10/25/20 12:22 BP 146/83 10/25/20 12:22 Pulse Ox 96 10/25/20 12:22 Intake & Output 10/24/20 10/25/20 10/25/20 18:59 06:59 18:59 Intake Total 720 590 Output Total 550 Balance 170 590 Intake: Oral 720 590 Output: Urine 550 Other: Voiding Method Toilet Toilet Toilet # Voids 2 - Exam GENERAL: The patient is alert and oriented x3, in no acute distress Well developed, well nourished. HEENT: Pupils are round and equally reacting to light. EOMI. No scleral icterus. No conjunctival pallor. Normocephalic, atraumatic. No pharyngeal erythema. No t hyromegaly. CARDIOVASCULAR: S1 and S2 present. No murmurs, rubs, or gallops. PULMONARY: Chest is clear to auscultation, no wheezing or crackles. Dry, weak cough noted on exam ABDOMEN: Soft, nontender, nondistended, normoactive bowel sounds. No palpable organomegaly. MUSCULOSKELETAL: No joint swelling or deformity. EXTREMITIES: No cyanosis, clubbing, or pedal edema. NEUROLOGICAL: Gross neurological examination did not reveal any focal deficits. SKIN: No rashes. - Labs CBC & Chem 7: 10/23/20 09:18 10/23/20 09:18 Labs: Abnormal Lab Results - Last 24 Hours (Table) 10/24/20 10/24/20 10/25/20 Range/Units 16:29 20:16 07:12 POC Glucose (mg/dL) 314 H 315 H 139 H (75-99) mg/dL 10/25/20 Range/Units 11:34 POC Glucose (mg/dL) 242 H (75-99) mg/dL Microbiology - Last 24 Hours (Table) 10/20/20 22:45 Blood Culture - Preliminary Blood No Growth after 96 hours Assessment and Plan Assessment: -Acute hypoxic respiratory failure secondary to Covid 19 pneumonia patient was started on Decadron and on Remdesivir. -Hypoglycemia: New-onset diabetes mellitus: Patient is on long-acting insulin along with pre-meal and sliding scale -Covid 19 pneumonia and hypoxia secondary to that -gastroesophageal reflux disease patient has hiatal hernia, continue soft diet -Hypertension: Patient blood pressures are low normal, not receiving his DIANE inhibitor. Plan: Continue current medications. Continue with incentive spirometer and instructed to use 10 times every hour while awake. Monitor blood sugars closely. Patient will be receiving last dose of Remdesivir tomorrow and could potentially go home. Patient instructed to follow up with primary care provider in one week. Continue to quarantine for an additional 7 days and until symptom free for 3 days. Further recommendations to follow. Diabetic education ordered. Anticipate discharge in 24 hours.
--- NOTE | 2020-10-26 01:42 | PN ---
PROGRESS NOTE DATE OF SERVICE: 10/25/2020 REASON FOR FOLLOWUP: Acute COVID-19 pneumonia. INTERVAL HISTORY: The patient is currently afebrile. Still complaining of not feeling well. Unable to take a deep breath. Sometimes has chest pain. No nausea, no vomiting. No abdominal pain or diarrhea. PHYSICAL EXAMINATION: Blood pressure 145/80 with a pulse of 65, temperature 98.2. He is 96% on room air. General description: The patient is a middle-aged male up in the chair in no distress. Respiratory system: Unlabored breathing. Clear to auscultation anteriorly. HEART: S1, S2. Regular rate and rhythm. ABDOMEN: Soft, no tenderness. LABS: No new labs have been obtained today. DIAGNOSTIC IMPRESSION/PLAN: Patient with acute COVID-19 infection in this patient who seemed to have shown clinical improvement. We will recheck his inflammatory markers tomorrow and continue with current treatment protocol with Remdesivir, Dexamethasone, Lovenox and respiratory support. Continue supportive care. MMODL / IJN: [id number] /
--- NOTE | 2020-10-26 07:28 | XR ---
EXAMINATION TYPE: XR chest 1V portable DATE OF EXAM: 10/26/2020 HISTORY: Shortness of breath. COMPARISON: 10/25/2020 TECHNIQUE: Single view of the chest is submitted. FINDINGS: Demonstrated are scattered senescent parenchymal change. Perihilar and basilar infiltrates persist without significant interval change. The heart is stable. Hilar and mediastinal structures are within normal limits. Degenerative changes are seen of the dorsal spine. IMPRESSION: 1. Perihilar and basilar infiltrates persist without significant interval change.
[2020-10-26 07:43] LABS: Glucose,Whole Blood 142 mg/dL (75-99)
[2020-10-26 08:28] LABS: Basophils % (A) 0 %; Eosinophils % (A) 0 %; HCT 40.8 % (39.0-53.0); HGB 13.9 gm/dL (13.0-17.5); Lymphocytes # (A) 1.9 k/uL (1.0-4.8); Lymphocytes % (A) 35 %; MCH 27.2 pg (25.0-35.0); MCHC 34.1 g/dL (31.0-37.0); MCV 79.7 fL (80.0-100.0); Mean Platelet Volume 7.9; Monocytes # (A) 0.5 k/uL (0-1.0); Monocytes % (A) 9 %; Neutrophils # (A) 2.9 k/uL (1.3-7.7); Neutrophils % (A) 52 %; Platelet Count 229 k/uL (150-450); RBC 5.12 m/uL (4.30-5.90); RDW 13.4 % (11.5-15.5); WBC 5.6 k/uL (3.8-10.6)
[2020-10-26] MEDS: ALBUTEROL HFA INHALER INHALATION SCH ×4 (08:33→19:27)
[2020-10-26] MEDS: INSULIN ASPART (NovoLOG) 100 UNIT/ML VIAL SQ SCH ×7 (09:06→21:23)
[2020-10-26] MEDS: INSULIN DETEMIR (LEVEMIR) 100 UNIT/ML SYR SQ SCH (09:06)
[2020-10-26] MEDS: ENOXAPARIN 40 MG/0.4 ML SYRINGE SQ SCH (09:07)
[2020-10-26] MEDS: PANTOPRAZOLE 40 MG TABLET PO SCH ×2 (09:07→15:13)
[2020-10-26] MEDS: DEXAMETHASONE SOD PHOSPHATE 10 MG/ML 1 ML VIAL IV SCH (09:07)
[2020-10-26 11:18] LABS: Glucose,Whole Blood 253 mg/dL (75-99)
[2020-10-26 12:01] LABS: African American GFR (CKD) 112.6 (60.0-200.0); Albumin 3.9 g/dL (3.80-4.90); Albumin/Globulin Ratio 2.05 (1.60-3.17); Anion Gap 7.4 mmol/L (4.00-12.00); BUN/Creat Ratio 16.67 Ratio (12.00-20.00); Calcium 8.8 mg/dL (8.7-10.3); Carbon Dioxide 27.6 mmol/L (21.6-31.8); Globulin 1.9 g/dL (1.6-3.3); Non-African American GFR(CKD) 97.2 (60.0-200.0); Potassium 4.3 mmol/L (3.5-5.5); Total Bilirubin 0.6 mg/dL (0.3-1.2); Total Protein 5.8 g/dL (6.2-8.2)
--- NOTE | 2020-10-26 13:41 | P.PN ---
Subjective Progress Note Date: 10/26/20 Principal diagnosis: Acute CoVID 19 pneumonia 55-year-old patient, presenting to the hospital because of complications of an acute: 90 related infection. The patient developed symptoms approximately a week ago. He developed generalized weakness, body aches, fatigue, tiredness, headaches and he was taking prednisone at home which obviously cause some disturbances blood sugar and the patient developed some hyperglycemia. Note that he has not been diagnosed with diabetes mellitus although this has been suspected and the patient developed increased polyuria and polydipsia while being on systemic prednisone. Subsequently, he started having increased shortness of breath and cough and he came into the hospital and he was hospitalized yesterday for: 90 related infection/pneumonia. He underwent a chest x-ray and subsequently a CAT scan of the chest in the emergency department that showed limited hazy groundglass pulmonary infiltrates bilaterally. He was getting up to the bathroom today when he became acutely short of breath and he desaturated. He is currently on 2 L of oxygen by nasal cannula. I saw this patient consultation. He is currently on Decadron 6 mg IV 24 hours. He was started on Remdesivir per protocol for a total of 5 days. He is currently receiving IV fluids with normal saline at the rate of 100 mL an hour. He is on Lovenox 40 mg subcu for DVT prophylaxis. In terms of his blood work, the patient's had a ferritin level of 265, LDH of 397, CRP of 16.9 which is up to 20.8 and a LEVEL OF 0.25. HIS BLOOD SUGAR WAS 696 AT A TIME OF HIS ADMISSION.. HE WAS GIVEN LONG-ACTING INSULIN AND BLOOD SUGARS UNDER MUCH BETTER CONTROL FOR NOW. LIVER FUNCTION TEST SHOWS AST OF 48, ALT OF 73, ALKALINE PHOSPHATASE OF 83 WITH A BILIRUBIN OF 1.1. TROPONINS ARE LESS THAN 0.012. The patient's d-dimer is at 0.44. The patient is currently on Lovenox for DVT prophylaxis. On 10/23/2020 patient seen in follow-up on selective care unit, he is resting co mfortably in bed, appears to be breathing comfortably, no acute distress, vital signs have been stable overnight, his last episode of fever was yesterday morning. Remains on 2 L of oxygen has pulse ox of 97%, will Probably further wean down his FiO2, does get exertional dyspnea, and cough, which is dry and nonproductive, no complaints of chest pain or palpitations. He is on day 2 of Remdesivir treatment, he is on prophylactic dose of Lovenox, he is on IV Decadron. The labs have been reviewed, showing blood cell count of 3.9, hemoglobin 13.6, his d-dimer was 0.44, his sodium is 133, the rest of the electrolytes and renal profile were unremarkable, his LDH was within normal limits, CRP has trended up some on yesterday's labs, not significantly elevated at 20.8, he states his taste is slightly altered, but no nausea vomiting or diarrhea, or abdominal pain On 10/25/2020 patient seen in follow-up on Gen. medical surgical floor, he is awake and alert, oriented 3, denies any worsening dyspnea, today is day 4 of Remdesivir treatment, he is on room air pulse ox is 96%, overall he is feeling better, mental crackles on physical exam, no completes of chest discomfort, no palpitations, hemodynamically stable, no fever or chills, still has exertional dyspnea and cough. Today's chest x-ray shows patchy perihilar and basilar infiltrates. On yesterday's labs his LDH had trended up some to 852, CRP was relatively stable at 19.8. The patient is seen today 10/26/2020 in follow-up on the regular medical floor. He is currently sitting up in a chair at the bedside. Awake and alert in no acute distress. He is maintaining good O2 saturations in the mid 90s on room air. He's afebrile. Hemodynamically stable. White count 5.6. Hemoglobin 13.9. D-dimer 0.33. Sodium 138. Potassium 4.3. Creatinine 0.9. AST 56, ALT 119, C-reactive protein 1.0. This is day #5 of Remdesivir. Chest x-ray continues to show perihilar and basilar infiltrates without significant interval change. Objective - Vital Signs Vital signs: Vital Signs Temp 98.4 F 10/26/20 11:10 Pulse 67 10/26/20 11:10 Resp 20 10/26/20 11:10 BP 126/73 10/26/20 11:10 Pulse Ox 95 10/26/20 11:10 Intake & Output 10/25/20 10/26/20 10/26/20 18:59 06:59 18:59 Intake Total 250 500 Output Total 300 Balance 250 500 -300 Intake: Intake, IV Titration 250 Amount Remdesivir (Eua) 100 mg 250 In Sodium Chloride 0.9% 250 ml @ 250 mls/hr IVPB DAILY@1300 [facility] Rx#: [id number] Oral 500 Output: Urine 300 Other: Voiding Method Toilet Toilet # Voids 1 1 - Exam GENERAL EXAM: Alert, active, very pleasant, 54-year-old male patient, on room air with a sat 95% comfortable in no apparent distress. HEAD: Normocephalic/atraumatic. EYES: Normal reaction of pupils, equal size. Conjunctiva pink, sclera white. NOSE: Clear with pink turbinates. THROAT: No erythema or exudates. NECK: No masses, no JVD, no thyroid enlargement, no adenopathy. CHEST: No chest wall deformity. Symmetrical expansion. LUNGS: Equal air entry with no crackles, wheeze, rhonchi or dullness. CVS: Regular rate and rhythm, normal S1 and S2, no gallops, no murmurs, no rubs ABDOMEN: Soft, nontender. No hepatosplenomegaly, normal bowel sounds, no guarding or rigidity. EXTREMITIES: No clubbing, no edema, no cyanosis, 2+ pulses and upper and lower extremities. MUSCULOSKELETAL: Muscle strength and tone normal. SPINE: No scoliosis or deformity SKIN: No rashes CENTRAL NERVOUS SYSTEM: Alert and oriented -3. No focal deficits, tone is n ormal in all 4 extremities. PSYCHIATRIC: Alert and oriented -3. Appropriate affect. Intact judgment and insight. - Labs CBC & Chem 7: 10/26/20 07:01 10/26/20 07:01 Labs: Abnormal Lab Results - Last 24 Hours (Table) 10/25/20 10/25/20 10/26/20 Range/Units 17:15 20:13 07:01 MCV 79.7 L (80.0-100.0) fL Glucose (70-110) mg/dL POC Glucose (mg/dL) 295 H 303 H (75-99) mg/dL AST (14-35) U/L ALT (10-49) U/L Alkaline Phosphatase (41-126) U/L C-Reactive Protein (0.0-0.8) mg/dL Total Protein (6.2-8.2) g/dL 10/26/20 10/26/20 10/26/20 Range/Units 07:01 07:41 11:16 MCV (80.0-100.0) fL Glucose 144 H (70-110) mg/dL POC Glucose (mg/dL) 142 H 253 H (75-99) mg/dL AST 56 H (14-35) U/L ALT 119 H (10-49) U/L Alkaline Phosphatase 128 H (41-126) U/L C-Reactive Protein 1.0 H (0.0-0.8) mg/dL Total Protein 5.8 L (6.2-8.2) g/dL Microbiology - Last 24 Hours (Table) 10/20/20 22:45 Blood Culture - Preliminary Blood No Growth after 120 hours Assessment and Plan Assessment: 1 acute COVID 19 infection with secondary complications including constitutional symptoms and a mild degree of pneumonia as seen on the CAT scan of the chest kehinde t showed limited bilateral groundglass pulmonary infiltrates, started on Remdesivir treatment on 10/22/2020 2 shortness of breath and mild hypoxemia secondary to above. This is an acute hypoxic respiratory failure currently on 2 L of oxygen by nasal cannula 3 fever secondary to above 4 hypertension 5 gout 6 Steroid-induced hyperglycemia with possibly an underlying component of diabetes mellitus. Mother the patient is an HbA1c of 9.8 indicating an underlying diabetes mellitus. 7 hyponatremia possibly hypovolemic Plan: The patient was seen and evaluated by Dr. Perry Chest x-ray and labs reviewed This is day #5 of his Remdesivir Continue the current treatment plan Probable discharge in the a.m. I, the cosigning physician, performed a history & physical examination of the patient. Lungs sounds are clear. Maintaining good O2 saturations in the 90s on room air. I discussed the assessment and plan of care with my nurse practitioner, Yvette Mota. I attest to the above note as dictated by her.
[2020-10-26] MEDS: REMDESIVIR (EUA) 100 MG in SODIUM CHLORIDE 0.9% 250 ML IVPB SCH (13:43)
[2020-10-26] MEDS: ONDANSETRON 4 MG/2 ML VIAL IVP PRN ×2 (15:13→21:23)
[2020-10-26 16:52] LABS: Glucose,Whole Blood 357 mg/dL (75-99)
[2020-10-26 20:59] LABS: Glucose,Whole Blood 276 mg/dL (75-99)
[2020-10-26] MEDS: ASCORBIC ACID 500 MG TAB PO SCH (21:23)
[2020-10-26] MEDS: ZINC SULFATE 220 MG CAP PO SCH (21:23)
[2020-10-26] MEDS: CHOLECALCIFEROL 400 UNIT TAB PO SCH (21:24)
--- NOTE | 2020-10-26 23:50 | P.PN ---
Subjective Progress Note Date: 10/26/20 Principal diagnosis: Acute hypoxic respiratory failure secondary to Covid 19 pneumonia 55-year-old male was admitted for Covid19. Patient is also new-onset diabetes mellitus. Patient didn't do well as today patient was quite a bit nauseous quite miserable today became hypoxic patient was started on Decadron infectious disease was consulted. And he became hypoxic pulmonary was consulted as well. Patient came in with blood sugars of 600 his blood sugars are expected to go up we'll increase the long-acting insulin to 45 units. and is not able to tolerate the diet. Patient was started on clear liquid diet instead of regular diet. 10/23/2020 Patient is still having severe nausea on 2 L of oxygen saturating well. Patient's hemoglobin A1c is 9.8. Patient is on Decadron at this time. Patient does have hiatal hernia with acid reflux. 10/24/2020 Still complaining of shortness of breath and was saturating well on 2 L of oxygen. Patient will complete his Remdesivir October 26 and the patient is wishing to stay until then. Constitutional: As mentioned in HPI Cardio vascular: denied any chest pain, palpitations Gastrointestinal as mentioned in HPI Pulmonary: As mentioned in HPI Neurologic denied any new focal deficits All inpatient medications were reviewed and appropriate changes in these medications as dictated in the interval history and assessment and plan. 10/25/20 Patient seen in follow up and continues to have shortness of breath with a persistent dry cough with little phlegm production. Patient is currently receiving dexamethasone, lovenox, and remdesivir with tomorrow being his last dose of treatment. ID and pulmonary following. Patient continues to have intermittent nausea with little appetite and generalized weakness and fatigue. Patient is 96% on room air and in no acute respiratory distress. Patient continues to use incentive spirometer. Blood sugars elevated and will continue with long acting, pre-meal insulin, and sliding scale at this time. 10/26/2020 Patient is currently sitting in the chair at comfortably. Patient still complains of shortness of breath and exertional dyspnea even with walking to the bathroom. Currently on room air and is saturating mid 90s. Patient has been afebrile. Chest x-ray showed perihilar and basilar infiltrates persist without significant interval change. Pulmonary is on board. Laboratory data reviewed. CRP 1.0 and AST 56 ALT 119 and alk phos 128 remaining laboratory data within normal limits. Patient will be continued on remdesivir day 5 today. Anticipate discharge in the next 24 hours with more clinical improvement. Current medications reviewed. Review of systems: Constitutional: Reports weakness and fatigue Cardio: No reports of chest pain or palpitations Respiratory: Reports shortness of breath and persistent cough GI: reports intermittent nausea with no vomiting, reports diarrhea : no reports of dysuria or retention Neurovascular: No reports of numbness All medications have been reviewed. Objective - Vital Signs Vital signs: Vital Signs Temp 98.2 F 10/26/20 04:00 Pulse 56 L 10/26/20 04:00 Resp 18 10/26/20 04:00 BP 143/84 10/26/20 04:00 Pulse Ox 96 10/26/20 04:00 Intake & Output 10/25/20 10/26/20 10/26/20 18:59 06:59 18:59 Intake Total 250 500 Output Total 300 Balance 250 500 -300 Intake: Intake, IV Titration 250 Amount Remdesivir (Eua) 100 mg 250 In Sodium Chloride 0.9% 250 ml @ 250 mls/hr IVPB DAILY@1300 [facility] Rx#: [id number] Oral 500 Output: Urine 300 Other: Voiding Method Toilet Toilet # Voids 1 1 - Exam - Exam GENERAL: The patient is alert and oriented x3, in no acute distress Well developed, well nourished. HEENT: Pupils are round and equally reacting to light. EOMI. No scleral icterus. No conjunctival pallor. Normocephalic, atraumatic. No pharyngeal erythema. No thyromegaly. CARDIOVASCULAR: S1 and S2 present. No murmurs, rubs, or gallops. PULMONARY: Chest is clear to auscultation, no wheezing or crackles. Dry, weak cough noted on exam ABDOMEN: Soft, nontender, nondistended, normoactive bowel sounds. No palpable organomegaly. MUSCULOSKELETAL: No joint swelling or deformity. EXTREMITIES: No cyanosis, clubbing, or pedal edema. NEUROLOGICAL: Gross neurological examination did not reveal any focal deficits. SKIN: No rashes. - Labs CBC & Chem 7: 10/26/20 07:01 10/26/20 07:01 Labs: Abnormal Lab Results - Last 24 Hours (Table) 10/25/20 10/25/20 10/26/20 Range/Units 17:15 20:13 07:01 MCV 79.7 L (80.0-100.0) fL Glucose (70-110) mg/dL POC Glucose (mg/dL) 295 H 303 H (75-99) mg/dL AST (14-35) U/L ALT (10-49) U/L Alkaline Phosphatase (41-126) U/L C-Reactive Protein (0.0-0.8) mg/dL Total Protein (6.2-8.2) g/dL 10/26/20 10/26/20 10/26/20 Range/Units 07:01 07:41 11:16 MCV (80.0-100.0) fL Glucose 144 H (70-110) mg/dL POC Glucose (mg/dL) 142 H 253 H (75-99) mg/dL AST 56 H (14-35) U/L ALT 119 H (10-49) U/L Alkaline Phosphatase 128 H (41-126) U/L C-Reactive Protein 1.0 H (0.0-0.8) mg/dL Total Protein 5.8 L (6.2-8.2) g/dL Microbiology - Last 24 Hours (Table) 10/20/20 22:45 Blood Culture - Preliminary Blood No Growth after 120 hours Assessment and Plan Assessment: -Acute hypoxic respiratory failure secondary to Covid 19 pneumonia patient was started on Decadron and on Remdesivir. -Hypoglycemia: New-onset diabetes mellitus: Patient is on long-acting insulin along with pre-meal and sliding scale -Covid 19 pneumonia and hypoxia secondary to that -gastroesophageal reflux disease patient has hiatal hernia, continue soft diet -Hypertension: Patient blood pressures are low normal, not receiving his DIANE inhibitor. Plan: Continue current medications. Continue with incentive spirometer and instructed to use 10 times every hour while awake. Monitor blood sugars closely. Patient will be receiving last dose of Remdesivir today and could potentially go home tomorrow. Patient instructed to follow up with primary care provider in one week. Continue to quarantine for an additional 7 days and until symptom free for 3 days. Further recommendations to follow. Diabetic education ordered. Anticipate discharge in 24 hours. Time with Patient: Greater than 30
--- NOTE | 2020-10-27 07:15 | PN ---
PROGRESS NOTE DATE OF SERVICE: 10/27/2020 REASON FOR FOLLOW UP: COVID-19 pneumonia. INTERVAL HISTORY: Patient is currently afebrile. The patient is feeling better. He is able to take a deep breath. Minimal cough. No nausea, no vomiting. No abdominal pain, no diarrhea. PHYSICAL EXAMINATION: Blood pressure 147/80 with a pulse of 64, temperature 98.3. He is 96% on room air. General description is a middle-aged male up in the bed in no distress. Respiratory system: Unlabored breathing, decreased intensity of breath sounds. No wheeze. Heart S1, S2. Regular rate and rhythm. Abdomen is soft, no tenderness. LAB: Hemoglobin 13.1, white count of 5.6. D-dimer is 0.33. CRP is down to 1. IMPRESSION/PLAN: Patient with acute COVID-19 infection in this patient that has seemed to have shown clinical improvement. The patient has completed his 5-day course of remdesivir. He is currently on zinc sulfate, Lovenox and Decadron to continue and monitor clinical course closely. Continue supportive care. MMODL / IJN: [id number] /
[2020-10-27 07:51] LABS: Glucose,Whole Blood 181 mg/dL (75-99)
[2020-10-27] MEDS: ENOXAPARIN 40 MG/0.4 ML SYRINGE SQ SCH (09:00)
[2020-10-27] MEDS: PANTOPRAZOLE 40 MG TABLET PO SCH (09:00)
[2020-10-27] MEDS: INSULIN ASPART (NovoLOG) 100 UNIT/ML VIAL SQ SCH ×4 (09:01→13:16)
[2020-10-27] MEDS: INSULIN DETEMIR (LEVEMIR) 100 UNIT/ML SYR SQ SCH (09:01)
[2020-10-27] MEDS: DEXAMETHASONE SOD PHOSPHATE 10 MG/ML 1 ML VIAL IV SCH (09:01)
[2020-10-27] MEDS: MAG HYDROX/AL HYDROX/SIMETH 30 ML, diphenhydrAMINE ELIXIR 75 MG, LIDOCAINE VISCOUS 30 ML PO SCH ×3 (09:02)
[2020-10-27] MEDS: ALBUTEROL HFA INHALER INHALATION SCH ×3 (09:17→16:01)
[2020-10-27 12:38] LABS: Glucose,Whole Blood 242 mg/dL (75-99)
--- NOTE | 2020-10-27 14:10 | P.PN ---
Subjective Progress Note Date: 10/27/20 Principal diagnosis: Acute COVID 19 pneumonia 55-year-old patient, presenting to the hospital because of complications of an acute: 90 related infection. The patient developed symptoms approximately a week ago. He developed generalized weakness, body aches, fatigue, tiredness, headaches and he was taking prednisone at home which obviously cause some disturbances blood sugar and the patient developed some hyperglycemia. Note that he has not been diagnosed with diabetes mellitus although this has been suspected and the patient developed increased polyuria and polydipsia while being on systemic prednisone. Subsequently, he started having increased shortness of breath and cough and he came into the hospital and he was hospitalized yesterday for: 90 related infection/pneumonia. He underwent a chest x-ray and subsequently a CAT scan of the chest in the emergency department that showed limited hazy groundglass pulmonary infiltrates bilaterally. He was getting up to the bathroom today when he became acutely short of breath and he desaturated. He is currently on 2 L of oxygen by nasal cannula. I saw this patient consultation. He is currently on Decadron 6 mg IV 24 hours. He was started on Remdesivir per protocol for a total of 5 days. He is currently receiving IV fluids with normal saline at the rate of 100 mL an hour. He is on Lovenox 40 mg subcu for DVT prophylaxis. In terms of his blood work, the patient's had a ferritin level of 265, LDH of 397, CRP of 16.9 which is up to 20.8 and a LEVEL OF 0.25. HIS BLOOD SUGAR WAS 696 AT A TIME OF HIS ADMISSION.. HE WAS GIVEN LONG-ACTING INSULIN AND BLOOD SUGARS UNDER MUCH BETTER CONTROL FOR NOW. LIVER FUNCTION TEST SHOWS AST OF 48, ALT OF 73, ALKALINE PHOSPHATASE OF 83 WITH A BILIRUBIN OF 1.1. TROPONINS ARE LESS THAN 0.012. The patient's d-dimer is at 0.44. The patient is currently on Lovenox for DVT prophylaxis. On 10/23/2020 patient seen in follow-up on selective care unit, he is resting co mfortably in bed, appears to be breathing comfortably, no acute distress, vital signs have been stable overnight, his last episode of fever was yesterday morning. Remains on 2 L of oxygen has pulse ox of 97%, will Probably further wean down his FiO2, does get exertional dyspnea, and cough, which is dry and nonproductive, no complaints of chest pain or palpitations. He is on day 2 of Remdesivir treatment, he is on prophylactic dose of Lovenox, he is on IV Decadron. The labs have been reviewed, showing blood cell count of 3.9, hemoglobin 13.6, his d-dimer was 0.44, his sodium is 133, the rest of the electrolytes and renal profile were unremarkable, his LDH was within normal limits, CRP has trended up some on yesterday's labs, not significantly elevated at 20.8, he states his taste is slightly altered, but no nausea vomiting or diarrhea, or abdominal pain On 10/25/2020 patient seen in follow-up on Gen. medical surgical floor, he is awake and alert, oriented 3, denies any worsening dyspnea, today is day 4 of Remdesivir treatment, he is on room air pulse ox is 96%, overall he is feeling better, mental crackles on physical exam, no completes of chest discomfort, no palpitations, hemodynamically stable, no fever or chills, still has exertional dyspnea and cough. Today's chest x-ray shows patchy perihilar and basilar infiltrates. On yesterday's labs his LDH had trended up some to 852, CRP was relatively stable at 19.8. On 10/27/2020 patient seen in follow-up on medical surgical floor. Doing well, no acute complaints, he states his chest tightness has improved, room air pulse ox is 98%, his been afebrile, cough is improving. Remains on IV Decadron, prophylactic dose Lovenox, and he completed his Remdesivir treatment. Objective - Vital Signs Vital signs: Vital Signs Temp 98.4 F 10/27/20 07:24 Pulse 59 L 10/27/20 07:24 Resp 17 10/27/20 07:24 BP 151/86 10/27/20 07:24 Pulse Ox 98 10/27/20 07:24 Intake & Output 10/26/20 10/27/20 10/27/20 18:59 06:59 18:59 Intake Total 240 Output Total 300 Balance -60 Intake: Oral 240 Output: Urine 300 Other: Voiding Method Toilet Toilet # Voids 4 1 - Exam GENERAL EXAM: Alert, active, very pleasant, 54-year-old white male, on room air with a sat 97% comfortable in no apparent distress. HEAD: Normocephalic/atraumatic. EYES: Normal reaction of pupils, equal size. Conjunctiva pink, sclera white. NOSE: Clear with pink turbinates. THROAT: No erythema or exudates. NECK: No masses, no JVD, no thyroid enlargement, no adenopathy. CHEST: No chest wall deformity. Symmetrical expansion. LUNGS: Equal air entry with no crackles, wheeze, rhonchi or dullness. CVS: Regular rate and rhythm, normal S1 and S2, no gallops, no murmurs, no rubs ABDOMEN: Soft, nontender. No hepatosplenomegaly, normal bowel sounds, no guarding or rigidity. EXTREMITIES: No clubbing, no edema, no cyanosis, 2+ pulses and upper and lower extremities. MUSCULOSKELETAL: Muscle strength and tone normal. SPINE: No scoliosis or deformity SKIN: No rashes CENTRAL NERVOUS SYSTEM: Alert and oriented -3. No focal deficits, tone is normal in all 4 extremities. PSYCHIATRIC: Alert and oriented -3. Appropriate affect. Intact judgment and insight. - Labs CBC & Chem 7: 10/26/20 07:01 10/26/20 07:01 Labs: Abnormal Lab Results - Last 24 Hours (Table) 10/26/20 10/26/20 10/27/20 Range/Units 16:51 20:57 07:46 POC Glucose (mg/dL) 357 H 276 H 181 H (75-99) mg/dL 10/27/20 Range/Units 12:34 POC Glucose (mg/dL) 242 H (75-99) mg/dL Microbiology - Last 24 Hours (Table) 10/20/20 22:45 Blood Culture - Final Blood No Growth after 144 hours Assessment and Plan Plan: Assessment: 1 acute COVID 19 infection with secondary complications including constitutional symptoms and a mild degree of pneumonia as seen on the CAT scan of the chest that showed limited bilateral groundglass pulmonary infiltrates, started on Remdesivir treatment on 10/22/2020 2 shortness of breath and mild hypoxemia secondary to above. This is an acute hypoxic respiratory failure currently on 2 L of oxygen by nasal cannula 3 fever secondary to above 4 hypertension 5 gout 6 Steroid-induced hyperglycemia with possibly an underlying component of diabetes mellitus. Mother the patient is an HbA1c of 9.8 indicating an under lying diabetes mellitus. 7 hyponatremia possibly hypovolemic Plan: Patient is stable, he is on room air, maintaining stable oxygenation. No acute complaints, his cough is improving, his been ambulating in the room, tolerating activity well. No fever or chills, he completed his Remdesivir course. From pulmonary perspective she can be considered for discharge home today and he can complete a total of 10 day course of oral Decadron. I performed a history & physical examination of the patient and discussed their management with my nurse practitioner, Kavya Mead. I reviewed the nurse pra ctitioner's note and agree with the documented findings and plan of care. Lung sounds are positive for basilar crackles. The findings and the impression was discussed with the patient. I attest to the documentation by the nurse practitioner. Time with Patient: Less than 30
[2020-10-27 14:36] VITALS: BP 143/75; PULSE 65; RESP 16; TEMP 98.2
--- NOTE | 2020-10-27 16:22 | PN ---
PROGRESS NOTE DATE OF SERVICE: 10/27/2020 REASON FOR FOLLOWUP: COVID-19 pneumonia. INTERVAL HISTORY: The patient is currently afebrile. The patient is feeling better. Breathing comfortably. Denies having any chest pain. Minimal cough. No nausea, no vomiting. No abdominal pain, no diarrhea. PHYSICAL EXAMINATION: Blood pressure 142/75 with a pulse of 65, temperature 99.2. He is 97% on room air. General description is a middle-aged male, up in the chair in no distress. RESPIRATORY SYSTEM: Unlabored breathing, clear to auscultation anteriorly. HEART: S1, S2. Regular rate and rhythm. LABS: D-dimer is 0.33. White count normal. DIAGNOSTIC IMPRESSION AND PLAN: Patient with acute COVID-19 infection in this patient with overall clinical improvement. He has completed a 5-day course of Remdesivir and did well on Decadron prescription for 4-5 days. Will send and close outpatient followup. MMODL / IJN: [id number] /
== END 2020-10-27 16:46 | disposition home or self-care (01) | DRG 177 ==
LOC: EC 21:22 → 3SCARD 10-21 01:32 → 6NMEDSUR 10-25 01:47
PROVIDERS: ADMIT Hospitalist; ATTEND Hospitalist
DX: U07.1 COVID-19 (principal); J12.89 Other viral pneumonia; J96.01 Acute respiratory failure with hypoxia; E87.1 Hypo-osmolality and hyponatremia; J98.11 Atelectasis; E11.65 Type 2 diabetes mellitus with hyperglycemia; T38.0X5A Adverse effect of glucocorticoids and synthetic analogues, initial encounter; E86.1 Hypovolemia; I10 Essential (primary) hypertension; K21.9 Gastro-esophageal reflux disease without esophagitis; K44.9 Diaphragmatic hernia without obstruction or gangrene; M10.9 Gout, unspecified; Z90.49 Acquired absence of other specified parts of digestive tract; R11.0 Nausea; Z82.49 Family history of ischemic heart disease and other diseases of the circulatory system; Z83.3 Family history of diabetes mellitus; Z79.84 Long term (current) use of oral hypoglycemic drugs; Z79.899 Other long term (current) drug therapy
CPT/HCPCS: 36415; 71045; 71275; 80051; 80053; 82009; 82565; 82728; 82947; 83036; 83605; 83615; 83735; 84100; 84145; 84484; 84520; 85025; 85027; 85379; 85610; 85730; 86140; 87040; 93005; 93306; 94640; 94667; 94760; 96374; 99285

== ENCOUNTER → 2021-01-25 | Outpatient (CLI) | payer OTHER ==
[2021-01-25 16:39] LABS: Hemoglobin A1C 5.6 % (4.0-6.0)
[2021-01-25 23:25] LABS: African American GFR (CKD) 99.1 (60.0-200.0); Albumin 4.2 g/dL (3.80-4.90); Albumin/Globulin Ratio 1.68 (1.60-3.17); Anion Gap 9.3 mmol/L (4.00-12.00); Carbon Dioxide 25.7 mmol/L (21.6-31.8); Chol/HDL Ratio 4.6; Globulin 2.5 g/dL (1.6-3.3); LDL Cholesterol,Calculated 139.6 mg/dL (0.0-131.0); Non-African American GFR(CKD) 85.5 (60.0-200.0); Potassium 4.3 mmol/L (3.5-5.5); Total Protein 6.7 g/dL (6.2-8.2); Uric Acid 9.1 mg/dL (3.7-8.7); VLDL Calculation 22.4 mg/dL (5.00-40.00)
[2021-01-26 01:12] LABS: Microalbumin Creatinine Ratio <30 mg/g Creat (0-30); Urine Creatinine 64.6 mg/dL
== END | disposition home or self-care (01) ==
LOC: LABWHC1 09:03
PROVIDERS: ATTEND Family Medicine
DX: E11.9 Type 2 diabetes mellitus without complications (principal); M10.9 Gout, unspecified
CPT/HCPCS: 36415; 80053; 80061; 82043; 82570; 83036; 84550

== ENCOUNTER → 2021-11-22 | Outpatient (CLI) | payer OTHER ==
[~2021-11-22] MED LIST: REGADENOSON 0.4 MG/5 ML SYRINGE IV PRN
--- NOTE | 2021-11-22 12:44 | NM ---
EXAMINATION TYPE: NM stress lexiscan cardiolite DATE OF EXAM: 11/22/2021 COMPARISON: NONE HISTORY: 56-year-old male with a family history of heart disease and chest pain. Hypertension, diabet es, hypercholesterolemia, difficulty breathing, palpitations. TECHNIQUE: After the intravenous administration of 9.49 mCi Tc 99m Sestamibi - Cardiolite resting SP ECT images acquired 45 minutes post injection. The patient received 0.4mg Lexiscan, 26.3 mCi Tc 99m Sestamibi - Stress images obtained [address] injection FINDINGS: Review of stress and rest SPECT images demonstrates a small area of possible reversibility along the mid anterolateral wall. This defect is corroborated on polar maps. Fixed defect along the inferosepta l wall more pronounced on rest images suggesting attenuation artifact. No distinct perfusion abnormal ity. Gated analysis shows normal wall motion with an estimated left ventricular ejection fraction of 58 %. TID is calculated at 0.90, within normal limits. IMPRESSION: 1. Small area of reversibility along the mid anterolateral wall. This is corroborated on the polar ma ps. Further clinical correlation recommended. 2. Estimated LVEF of 58%.
--- NOTE | 2021-11-23 09:44 | EST ---
EXERCISE STRESS DATE OF SERVICE: November 22, 2021. INDICATION: Chest pain. AGE: 56 SEX: M HT: 6'1" WT: 230 lbs. PROTOCOL: Lexiscan Cardiolite STAGE: NA DURATION OF EXERCISE: NA HEART RATE REST: 63 BLOOD PRESSURE REST: 159/90 MAXIMUM HEART RATE ACHIEVED: 94 MAXIMUM BLOOD PRESSURE: 175/92 85% MPHR: 141 100% MPHR: 166 METS: NA INDICATIONS: Chest pain STRESS DATA: Heart rate 63, pressure is 169/90 mmHg. Baseline EKG showed sinus mechanism. 0.4 mg of Lexiscan over 15 seconds per protocol. Max heart rate was 94 beats per minute. Maximum pressure was 175/92 mmHg. Clinically, the patient did not have any symptoms. The EKG did not show any significant ST or T-wave abnormalities concerning for ischemia. CONCLUSION: 1. Nondiagnostic electrocardiogram stress testing in response to Lexiscan. 2. Please follow up on the Cardiolite portion on a separate report. MMODL / IJN: [id number] /
== END | disposition home or self-care (01) ==
LOC: RADNMMAIN 07:30
PROVIDERS: ATTEND Family Medicine
DX: R07.9 Chest pain, unspecified (principal); I10 Essential (primary) hypertension; E11.9 Type 2 diabetes mellitus without complications; E78.00 Pure hypercholesterolemia, unspecified; R00.2 Palpitations; R93.1 Abnormal findings on diagnostic imaging of heart and coronary circulation; Z82.49 Family history of ischemic heart disease and other diseases of the circulatory system
CPT/HCPCS: 93017; 78452; A9500; J2785

== ENCOUNTER → 2021-12-14 | Outpatient (CLI) | payer OTHER ==
[2021-12-14 23:00] LABS: Basophils # (A) 0.05 X 10*3/uL (0.00-0.10); Basophils % (A) 0.6 %; Eosinophils % (A) 1.2 %; HCT 41.7 % (39.6-50.0); HGB 14.5 g/dL (13.0-17.0); Lymphocytes # (A) 2.06 X 10*3/uL (0.90-5.00); Lymphocytes % (A) 24.4 %; MCHC 34.8 g/dL (32.0-37.0); MCV 77.7 fL (80.0-97.0); Mean Platelet Volume 10.3 fL (9.5-12.2); Monocytes # (A) 1.07 X 10*3/uL (0.20-1.00); Monocytes % (A) 12.7 %; Neutrophils # (A) 5.14 X 10*3/uL (1.80-7.70); Neutrophils % (A) 60.9 %; Platelet Count 240 X 10*3/uL (140-440); RBC 5.37 X 10*6/uL (4.40-5.60); RDW 13.1 % (11.5-14.5); WBC 8.44 X 10*3/uL (4.50-10.00)
[2021-12-14 23:02] LABS: African American GFR (CKD) 112.9 (60.0-200.0); Anion Gap 7.9 mmol/L (10.00-18.00); Blood Urea Nitrogen 13.2 mg/dL (9.0-27.0); Calcium 9.4 mg/dL (8.7-10.3); Carbon Dioxide 28.9 mmol/L (20.0-27.5); Non-African American GFR(CKD) 97.4 (60.0-200.0); Potassium 4.2 mmol/L (3.5-5.5)
[2021-12-14 23:06] LABS: INR 0.93 (0.90-1.11); Prothrombin Time 10.5 sec (9.9-11.9)
== END | disposition home or self-care (01) ==
LOC: LABWHC1 16:13
DX: Z01.810 Encounter for preprocedural cardiovascular examination (principal); R94.39 Abnormal result of other cardiovascular function study
CPT/HCPCS: 36415; 80048; 85025; 85610

== ENCOUNTER → 2022-06-28 | Outpatient (CLI) | payer OTHER ==
[2022-06-28 11:00] LABS: ALT 15 U/L (10-49); AST 23 U/L (14-35); African American GFR (CKD) 111.8 (60.0-200.0); Albumin 4.4 g/dL (3.8-4.9); Albumin/Globulin Ratio 1.76 (1.60-3.17); Alkaline Phosphatase 68 U/L (41-126); BUN/Creat Ratio 19.11 Ratio (12.00-20.00); Blood Urea Nitrogen 17.2 mg/dL (9.0-27.0); Calcium 9.2 mg/dL (8.7-10.3); Carbon Dioxide 25.7 mmol/L (20.0-27.5); Chloride 104 mmol/L (96-109); Chol/HDL Ratio 3.18 Ratio; Globulin 2.5 g/dL (1.6-3.3); Glucose 135 mg/dL (70-110); LDL Cholesterol,Calculated 74.5 mg/dL (0.0-131.0); Non-African American GFR(CKD) 96.5 (60.0-200.0); Potassium 4.4 mmol/L (3.5-5.5); Sodium 142 mmol/L (135-145); Total Protein 6.9 g/dL (6.2-8.2)
[2022-06-28 21:36] LABS: Microalbumin Creatinine Ratio <30 mg/g Creat (0-30)
== END | disposition home or self-care (01) ==
LOC: LABWHC1 07:14
PROVIDERS: ATTEND Family Medicine
DX: E11.9 Type 2 diabetes mellitus without complications (principal); E78.5 Hyperlipidemia, unspecified; M10.9 Gout, unspecified
CPT/HCPCS: 36415; 80053; 80061; 82043; 82570; 83036; 83880

== ENCOUNTER → 2022-10-15 | Outpatient (CLI) | payer OTHER ==
--- NOTE | 2022-10-15 15:48 | P.SLEEP ---
History of Present Illness H&P Date: 10/15/22 Chief Complaint: Hypersomnia This is a very pleasant 57-year-old patient, works for [employer] in [place], coming in due to concerns of sleep apnea. The patient has been noticing seeing recently that has become more tired and sleepy during the day and based on the fact that his sleep is fragmented and he has a very loud snoring, he wanted to come and be evaluated for obstructive sleep apnea. On 2 occasions, he has noted also to stop breathing at nighttime. Since he underwent his coronary artery bypass surgery, the patient also feels that whenever he sleeps on his side he would have a pulsating stridorous noise coming out of his mouth. This was investigated and further looked into by his cardiothoracic surgeon and piping engineer and no answers were provided. The patient is concerned of obstructive sleep apnea. Currently is going to bed at around 10:30 PM and is waking 5:30 AM in the morning. Is averaging about 7 hours of sleep. He wakes up not refreshed. He occasionally wakes up in the middle of the night to urinate. His weight has remained stable over the years and currently is weighing about 220 pounds. No history of a colon is impairedof substance abuse. No history of any motor vehicle accident because of feeling drowsy or sleepy. Is fully functional at work and he does not fall asleep while talking to other individuals. His current Schaumburg score is at 16. He lives in [place] and commutes back and forth to [place]. His never been involved in a motor vehicle accident. No symptoms of restless leg syndrome. He has diabetes and is very strong history of coronary artery disease. The patient himself was diagnosed having a very complex lesion involving the LAD and he underwent a single-vessel bypass surgery. He is a mouth breather. He has sleeping on his right side and back. Review of Systems Constitutional: Reports daytime sleepiness, Reports fatigue Eyes: denies as per HPI, denies blurred vision, denies bulging eye, denies decreased vision, denies diplopia, denies discharge, denies dry eye, denies irritation, denies itching, denies pain, denies photophobia, denies loss of peripheral vision, denies loss of vision, denies tunnel vision/blind spots Ears: deny: decreased hearing, ear discharge, earache, tinnitus Ears, nose, mouth and throat: Reports as per HPI (osis) Breasts: absent: as per HPI, gynecomastia Cardiovascular: Reports as per HPI Respiratory: Reports snoring (A) Gastrointestinal: Reports as per HPI Genitourinary: Reports as per HPI Musculoskeletal: Reports as per HPI Musculoskeletal: absent: ankle pain, ankle stiffness, ankle swelling Integumentary: Reports as per HPI Neurological: Reports as per HPI Psychiatric: Reports as per HPI Endocrine: Reports as per HPI Hematologic/Lymphatic: Reports as per HPI Allergic/Immunologic: Reports as per HPI Past Medical History Past Medical History: Coronary Artery Disease (CAD), GERD/Reflux, Hypertension Additional Past Medical History / Comment(s): gout History of Any Multi-Drug Resistant Organisms: None Reported Past Surgical History: Cholecystectomy Additional Past Surgical History / Comment(s): Cyst removed from left sinus 1994, CABG Past Anesthesia/Blood Transfusion Reactions: No Reported Reaction Past Psychological History: No Psychological Hx Reported Additional Psychological History / Comment(s): Retired from the [employer]. 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 He is lives with family home with his . He has 4 adult children from the age of 26-22 of them currently live at home. One son is in the in [place] but he has not visited there. He relates that he has not traveled overseas since his time in the [employer], he was in [place]. He was stationed in multiple [facility] but has not traveled out of the [place] area in quite some time. He does occasionally visit his son in the state of [place], this is the last base that he was on before he retired. There are no animals within the home. He has no severe history of alcohol or recreational drug use or tobacco use. Smoking Status: Never smoker Past Alcohol Use History: None Reported Past Drug Use History: None Reported - Past Family History Mother Family Medical History: Dementia Additional Family Medical History / Comment(s): Father of myocardial infarction at the age of 62. He said her brother of an AK and he was in his 40s inspite excellent health. Medications and Allergies Home Medications Medication Instructions Recorded Confirmed Type Omeprazole [PriLOSEC] 40 mg PO DAILY 07/21/15 10/20/20 History Albuterol Sulfate [Albuterol 2 puff PO RT-Q6H PRN 10/20/20 10/20/20 History Sulfate Hfa] predniSONE See Taper PO DIRECTED 10/20/20 10/20/20 History Ondansetron Odt [Zofran Odt] 4 mg PO Q8HR PRN #30 tab 10/21/20 Rx glipiZIDE [Glucotrol] 20 mg PO AC-BID #60 tablet 10/21/20 Rx metFORMIN HCL [Glucophage] 500 mg PO BID #60 tab 10/21/20 Rx INSULIN ASPART (NovoLOG) [NovoLOG 15 unit SQ AC-TID #1 vial 10/27/20 Rx (formulary)] Insulin Detemir (Levemir) [Levemir] 50 unit SQ DAILY@0700 #5 pen 10/27/20 Rx dexAMETHasone [Decadron] 6 mg PO DAILY #5 tablet 10/27/20 Rx Allergies Allergy/AdvReac Type Severity Reaction Status Date / Time tramadol [From Ultram] Allergy Itching Verified 10/20/20 23:08 Physical Exam BP is 168/78, pulse is 65, respirations 14, temperature is 96.8 and the saturations 98% on room air and the patient's weight is 241 pounds with a body mass index of 31.6. His current Schaumburg score is at 16 The patient appeared well nourished and normally developed. Vital signs as documented. Head exam is unremarkable. The patient has a Mallampati class I. No scleral icterus or corneal arcus noted. Neck is without jugular venous distension, thyromegaly, or carotid bruits. Carotid upstrokes are brisk bilaterally. Lungs are clear to auscultation and percussion. Cardiac exam reveals the PMI to be normally sized and situated. Rhythm is regular. First and second heart sounds normal. No murmurs, rubs or gallops. Abdominal exam reveals normal bowel sounds, no masses, no organomegaly and no aortic enlargement. Extremities are nonedematous and both femoral and pedal pulses are normal. Examination of the skin revealed no evidence of significant rashes, suspicious appearing nevi or other concerning lesions.Neurologically, the patient is awake and alert and the patient does not have any focal neurological deficit. Cranial nerves are essentially intact. Assessment and Plan Plan: Chronic fatigue/hypersomnia with an Schaumburg score of 16 Loud snoring Sleep fragmentation Mallampati class I with a body mass index of 31.6 Comorbid conditions include coronary artery disease and a single-vessel bypass surgery, diabetes mellitus, hypertension and hyperlipidemia and as such the patient has strong personal and family history for coronary artery disease. Nonocclusive carotid artery disease bilaterally Plan Recommend a sleep hygiene measures Maintain an average of 7-8 hours of sleep per night if possible Maintain her regular sleep schedule Treat comorbid conditions including the cardiac vascular complications Proceed with a polysomnogram to screen this patient for obstructive sleep apnea. Maintain her regular body weight We'll continue to follow and make further recommendations based on the results of the sleep study. Sleep Note - Sleep Note Sleep Note: Temperature: Pulse Rate: Respiratory Rate: Blood Pressure: SpO2: Height: Weight: BMI: Neck Circumference:
== END ==
LOC: SLEEP 14:11
PROVIDERS: ATTEND Internal Medicine Critical Care Medicine
DX: G47.33 Obstructive sleep apnea (adult) (pediatric) (principal); E11.9 Type 2 diabetes mellitus without complications; I10 Essential (primary) hypertension; E78.5 Hyperlipidemia, unspecified; Z82.49 Family history of ischemic heart disease and other diseases of the circulatory system; Z95.1 Presence of aortocoronary bypass graft; Z88.5 Allergy status to narcotic agent; Z79.4 Long term (current) use of insulin
CPT/HCPCS: 99211

== ENCOUNTER → 2022-11-13 | Outpatient (CLI) | payer OTHER ==
[2022-11-13 10:52] LABS: African American GFR (CKD) 116.6 (60.0-200.0); Anion Gap 13.1 mmol/L (10.00-18.00); BUN/Creat Ratio 19.88 Ratio (12.00-20.00); Blood Urea Nitrogen 15.9 mg/dL (9.0-27.0); Calcium 9.1 mg/dL (8.7-10.3); Carbon Dioxide 24.9 mmol/L (20.0-27.5); Non-African American GFR(CKD) 100.6 (60.0-200.0); Potassium 4.2 mmol/L (3.5-5.5)
== END | disposition home or self-care (01) ==
LOC: LABWHC1 07:31
PROVIDERS: ATTEND Family Medicine
DX: E11.9 Type 2 diabetes mellitus without complications (principal)
CPT/HCPCS: 36415; 80048; 83036

== ENCOUNTER → 2023-03-29 | Outpatient (CLI) | payer OTHER ==
[2023-03-29 12:56] LABS: HCT 42.8 % (39.6-50.0); HGB 12.1 g/dL (13.0-17.0); MCH 20.3 pg (27.0-32.0); MCHC 28.3 g/dL (32.0-37.0); MCV 71.7 fL (80.0-97.0); Mean Platelet Volume 9.9 fL (9.5-12.2); NRBC Per 100 WBC 0 /100 WBCS (0.0-0.0); Platelet Count 298 X 10*3/uL (140-440); RBC 5.97 X 10*6/uL (4.40-5.60); RDW 17.2 % (11.5-14.5); WBC 8.59 X 10*3/uL (4.50-10.00)
[2023-03-29 13:17] LABS: ALT 28 U/L (10-49); AST 27 U/L (14-35); African American GFR (CKD) 99.3 (60.0-200.0); Albumin 4.6 g/dL (3.8-4.9); Albumin/Globulin Ratio 1.96 (1.60-3.17); Alkaline Phosphatase 71 U/L (41-126); BUN/Creat Ratio 15.81 Ratio (12.00-20.00); Blood Urea Nitrogen 15.6 mg/dL (9.0-27.0); Calcium 9.5 mg/dL (8.7-10.3); Carbon Dioxide 24.3 mmol/L (20.0-27.5); Chloride 102 mmol/L (96-109); Chol/HDL Ratio 3.14 Ratio; Globulin 2.4 g/dL (1.6-3.3); Glucose 165 mg/dL (70-110); LDL Cholesterol,Calculated 53.3 mg/dL (0.0-131.0); Non-African American GFR(CKD) 85.7 (60.0-200.0); Potassium 5.2 mmol/L (3.5-5.5); Sodium 139 mmol/L (135-145)
[2023-03-29 13:20] LABS: Microalbumin Creatinine Ratio <30 mg/g Creat (0-30)
[2023-03-29 13:34] LABS: Basophils # (A) 0.07 X 10*3/uL (0.00-0.10); Basophils % (A) 0.8 %; Crenated RBC 2+; Elliptocytes 2+; Eosinophils # (A) 0.13 X 10*3/uL (0.04-0.35); Eosinophils % (A) 1.5 %; Hypochromasia (M) 2+; Immature Grans, Automated 0.1 %; Microcytosis (M) 2+; Monocytes # (A) 0.92 X 10*3/uL (0.20-1.00); Monocytes % (A) 10.7 %; Neutrophils # (A) 5.66 X 10*3/uL (1.80-7.70); Neutrophils % (A) 65.9 %
== END | disposition home or self-care (01) ==
LOC: LABWHC1 08:12
PROVIDERS: ATTEND Family Medicine
DX: Z12.5 Encounter for screening for malignant neoplasm of prostate (principal); E11.9 Type 2 diabetes mellitus without complications; E78.1 Pure hyperglyceridemia; N40.1 Benign prostatic hyperplasia with lower urinary tract symptoms
CPT/HCPCS: 36415; 80053; 80061; 82043; 82570; 83036; 84153; 85025

== ENCOUNTER → 2023-05-10 | Outpatient (CLI) | payer OTHER ==
[2023-05-11 08:24] LABS: % Iron Saturation 4.09 (15.00-50.00); Ferritin 13.1 ng/mL (22.0-322.0)
[2023-05-11 08:26] LABS: HCT 41.7 % (39.6-50.0); HGB 12.2 d/dL (12.0-15.0); MCH 20.1 pg (27.0-32.0); MCHC 29.3 d/dL (32.0-37.0); MCV 68.7 FL (80.0-97.0); Mean Platelet Volume 9.8 FL (9.5-12.2); NRBC Per 100 WBC 0 X 10*3/uL (0.00-0.01); Platelet Count 390 X 10*3/uL (140-440); RBC 6.07 X 10*6/uL (4.40-5.60); RDW 18.8 % (11.5-14.5); WBC 12.26 X 10*3/uL (4.50-10.00)
[2023-05-11 09:16] LABS: Basophils # (A) 0.07 X 10*3/uL (0.00-0.10); Basophils % (A) 0.6 %; Elliptocytes 2+; Eosinophils # (A) 0.07 X 10*3/uL (0.04-0.35); Eosinophils % (A) 0.6 %; Lymphocytes # (A) 1.82 X 10*3/uL (0.90-5.00); Lymphocytes % (A) 14.8 %; Microcytosis (M) 2+; Monocytes # (A) 1.48 X 10*3/uL (0.20-1.00); Monocytes % (A) 12.1 %; Neutrophils # (A) 8.77 X 10*3/uL (1.80-7.70); Neutrophils % (A) 71.5 %
== END | disposition home or self-care (01) ==
LOC: LABWHC1 11:29
PROVIDERS: ATTEND Family Medicine
DX: D55.9 Anemia due to enzyme disorder, unspecified (principal)
CPT/HCPCS: 36415; 82728; 83021; 83540; 83550; 85025; 85045

== ENCOUNTER → 2023-05-30 | Outpatient (CLI) | payer OTHER ==
[2023-05-30 11:21] LABS: HCT 47.1 % (39.6-50.0); HGB 13.7 d/dL (12.0-15.0); MCH 20.7 pg (27.0-32.0); MCHC 29.1 d/dL (32.0-37.0); MCV 71.1 FL (80.0-97.0); Mean Platelet Volume 9.8 FL (9.5-12.2); NRBC Per 100 WBC 0 X 10*3/uL (0.00-0.01); Platelet Count 316 X 10*3/uL (140-440); RBC 6.62 X 10*6/uL (4.40-5.60); RDW 20.6 % (11.5-14.5); WBC 12.75 X 10*3/uL (4.50-10.00)
[2023-05-30 12:00] LABS: ALT 25 U/L (10-49); AST 19 U/L (14-35); Albumin/Globulin Ratio 1.92 Ratio (1.60-3.17); Alkaline Phosphatase 75 U/L (41-126); C Reactive Protein <0.30 mg/dL (0.00-0.80); Calcium 10.4 mg/dL (8.7-10.3); Carbon Dioxide 26.9 mmol/L (21.6-31.8); Chloride 98 mmol/L (96-109); Chol/HDL Ratio 3.15 Ratio; Ferritin 14.8 ng/mL (22.0-322.0); Globulin 2.6 d/dL (1.6-3.3); Glucose 152 mg/dL (70-110); LDL Cholesterol,Calculated 70.4 mg/dL (0.0-131.0); Potassium 5.3 mmol/L (3.5-5.5); Sodium 139 mmol/L (135-145); Total Bilirubin 0.6 mg/dL (0.3-1.2); Total Protein 7.6 d/dL (6.2-8.2); Uric Acid 5.6 mg/dL (3.7-8.7)
[2023-05-30 12:28] LABS: Erythrocyte Sedimentation Rate 3 mm/Hr (0-20)
== END | disposition home or self-care (01) ==
LOC: LABWHC1 07:22
PROVIDERS: ATTEND Family Medicine
DX: Z13.228 Encounter for screening for other metabolic disorders (principal); D50.9 Iron deficiency anemia, unspecified; E11.9 Type 2 diabetes mellitus without complications; E78.5 Hyperlipidemia, unspecified; M10.9 Gout, unspecified
CPT/HCPCS: 36415; 80053; 80061; 82728; 82746; 83036; 84550; 85027; 85652; 86140

== ENCOUNTER → 2023-06-06 | Outpatient (CLI) | payer OTHER ==
[2023-06-06 17:00] LABS: African American GFR (CKD) 76 (>60 ml/min/1.73 sqM); Blood Urea Nitrogen 25 mg/dL (9-20); Non-African American GFR(CKD) 66 (>60 ml/min/1.73 sqM)
--- NOTE | 2023-06-09 13:13 | CT ---
EXAMINATION TYPE: CT abdomen pelvis wo/w con DATE OF EXAM: 06/06/2023 COMPARISON: None INDICATION: generalized abd pain DLP: 2440.5 mGycm, Automated exposure control for dose reduction was used. CONTRAST: 100ml mL of Isovue 300. Study performed with Oral Contrast TECHNIQUE: Axial images were obtained from above the diaphragm to the pubic rami in the axial plane a t 5 mm thick sections. Reconstructed images are reviewed on the computer in the coronal plane. FINDINGS: Limited CT sections are obtained the lung bases. The lung bases are clear. CT ABDOMEN: Liver: Normal Spleen: Normal Pancreas: Normal Adrenal glands: The adrenal glands are normal. Gallbladder: Surgically absent Kidneys: No masses are evident. No hydronephrosis is present. No cysts are present. No renal stone s are evident Aorta: Vascular calcification is within the aorta. Inferior vena cava: Normal. CT PELVIS: Loops of bowel within the abdomen and pelvis are normal. There are loops of bowel which are incom pletely distended or lack oral contrast limiting their evaluation. Loops of bowel distended with oral contrast. Unremarkable. Appendix: Normal as visualized. Urinary bladder: Normal. Genitourinary structures: Prostate appears normal. Osseous structures: No suspicious lytic or sclerotic lesions. IMPRESSIONS: 1. No suspicious abnormality to account for abdomen pain
== END | disposition home or self-care (01) ==
LOC: RADCTMAIN 15:15
PROVIDERS: ATTEND Family Medicine
DX: R10.84 Generalized abdominal pain (principal)
CPT/HCPCS: 82565; 84520; 74178; 36415; Q9967

== ENCOUNTER → 2023-06-13 | Outpatient (CLI) | payer OTHER ==
--- NOTE | 2023-06-13 11:53 | US ---
EXAMINATION TYPE: US carotid duplex BILAT DATE OF EXAM: 06/13/2023 COMPARISON: NONE CLINICAL INDICATION: Male, 57 years old with history of I65.21 NUMBNESS, CAROTID ARTERY STENOSIS; Roderick nosis per order. Hx hypertension, hyperlipidemia, diabetes. TECHNIQUE: Carotid duplex ultrasound examination. Indirect Doppler criteria was utilized. FINDINGS: EXAM MEASUREMENTS: RIGHT: Peak Systolic Velocity (PSV) cm/sec ----- Right CCA: 114.2 ----- Right ICA: 88.4 ----- Right ECA: 139.9 ICA/CCA ratio: 0.8 RIGHT: End Diastole cm/sec ----- Right CCA: 22.7 ----- Right ICA: 30.8 ----- Right ECA: 17.1 LEFT: Peak Systolic Velocity (PSV) cm/sec ----- Left CCA: 112.8 ----- Left ICA: 99.6 ----- Left ECA: 136.6 ICA/CCA ratio: 0.9 LEFT: End Diastole cm/sec ----- Left CCA: 22.7 ----- Left ICA: 35.8 ----- Left ECA: 18.7 VERTEBRALS (direction of flow): Right Vertebral: Antegrade Left Vertebral: Antegrade Rhythm: Normal PROOF SORTER NOTES: Plaque seen within right bulb. Intimal thickening seen bilaterally. Elevated veloc ities within bilateral ECAs and left prox CCA. IMPRESSION: 1. Atheromatous plaquing without significant flow-limiting stenosis of the internal carotid arteries. 2. There may be some elevation external carotid artery velocity suggesting moderate stenosis within t hese vessels. Criteria for Assigning % of Stenosis / Diameter reduction (Estimation based on the indirect measurements of the internal carotid artery velocities (ICA PSV). 1. Normal (no stenosis)=ICA PSV < 125 cm/s: ratio < 2.0: ICA EDV<40 cm/s. 2. Less than 50% stenosis=ICA PSV < 125 cm/s: ratio < 2.0: ICA EDV<40 cm/s. 3. 50 to 69% stenosis=ICA PSV of 125 to 230 cm/s: ration 2.0 ? 4.0: ICA EDV 40-100 cm/s. 4. Greater than 70% stenosis to near occlusion= ICA PSV > 230 cm/s: ratio > 4.0: ICA EDV > 100 cm/s. 5. Near occlusion= ICA PSV velocities may be low or undetectable: variable ratio and ICA EDV. 6. Total occlusion=unable to detect flow.
== END | disposition home or self-care (01) ==
LOC: RADUSWWP 10:45
PROVIDERS: ATTEND Family Medicine
DX: I65.23 Occlusion and stenosis of bilateral carotid arteries (principal); R20.2 Paresthesia of skin
CPT/HCPCS: 93880

== ENCOUNTER → 2023-07-11 | Outpatient (CLI) | payer OTHER ==
[2023-07-11 15:36] LABS: African American GFR (CKD) 86 (>60 ml/min/1.73 sqM); Blood Urea Nitrogen 22 mg/dL (9-20); Non-African American GFR(CKD) 75 (>60 ml/min/1.73 sqM)
--- NOTE | 2023-07-14 13:36 | CT ---
EXAMINATION TYPE: CT facial bones wo/w con DATE OF EXAM: 07/11/2023 COMPARISON: None HISTORY: localized swelling, no longer palpable. CT DLP: 1720.2 mGycm Automated exposure control for dose reduction was used. CONTRAST: CT scan of the facial bones is performed without and with IV Contrast, patient injected with 50ml mL of Isovue 300. TECHNIQUE: CT scan of the sinuses is performed without contrast, axial images are obtained, coronal r eformatted images are also reviewed. FINDINGS: The paranasal sinuses including the frontal, ethmoid, sphenoid, and maxillary sinuses bila terally are well-aerated with the multiple small mucous retention cyst or polyps involving the maxill jay sinus. Radhames cell incidentally noted. Small bilateral sandra bullosa. The ostiomeatal complex is patent bilaterally with mild narrowing on the left. Visualized portion of mastoid air cells show no abnormal opacification. The globes are intact bilate rally. IMPRESSION: 1. No acute process. 2. Chronic sinusitis with mucous retention cysts or small polyps within the maxillary sinuses.
--- NOTE | 2023-07-14 13:49 | CT ---
EXAMINATION TYPE: CT soft tissue neck w con DATE OF EXAM: 07/11/2023 4:51 PM COMPARISON: None HISTORY: localized swelling, no longer palpable. CT DLP: 666.8 mGycm Automated exposure control for dose reduction was used. CONTRAST: CT scan of the neck is performed following with IV Contrast, patient injected with 100ml mL of Isovue 300. Axial images are obtained, coronal and sagittal reformatted images are reviewed. FINDINGS: Airway: No gross abnormality seen. Parotid/submandibular glands: No gross abnormality seen. Carotid/Vascular Structures: Enhance normally. Osseous Structures: Hypertrophic degenerative changes spine and multilevel facet Other: There are bilateral thyroid nodules. Lung apices are clear. Sternotomy wires. Shotty lymph nod es are seen in the soft tissue compartments of the neck. No pathologic sized lymph nodes are identifi ed. IMPRESSION: 1. Multinodular thyroid.
== END | disposition home or self-care (01) ==
LOC: RADCTMAIN 14:48
PROVIDERS: ATTEND Psychiatry & Neurology Neurology
DX: E04.2 Nontoxic multinodular goiter (principal); J32.9 Chronic sinusitis, unspecified; R22.1 Localized swelling, mass and lump, neck; M54.2 Cervicalgia
CPT/HCPCS: 82565; 84520; 70488; 70491; 36415; Q9967

== ENCOUNTER → 2023-09-15 | Outpatient (CLI) | payer OTHER ==
[2023-09-15 17:16] LABS: Anisocytosis Slight; Basophils % (A) 0 %; Eosinophils # (A) 0.1 k/uL (0-0.7); Eosinophils % (A) 1 %; HCT 44.1 % (39.0-53.0); HGB 14.4 gm/dL (13.0-17.5); Hypochromasia Slight; Lymphocytes # (A) 1.9 k/uL (1.0-4.8); Lymphocytes % (A) 20 %; MCH 24.7 pg (25.0-35.0); MCHC 32.6 g/dL (31.0-37.0); MCV 75.9 fL (80.0-100.0); Mean Platelet Volume 7.1; Microcytosis Slight; Monocytes # (A) 0.7 k/uL (0-1.0); Monocytes % (A) 7 %; Neutrophils # (A) 6.5 k/uL (1.3-7.7); Neutrophils % (A) 69 %; Platelet Count 239 k/uL (150-450); RBC 5.81 m/uL (4.30-5.90); RDW 17.7 % (11.5-15.5); Reticulocyte % 1.5 % (0.5-2.0); WBC 9.4 k/uL (3.8-10.6)
[2023-09-15 17:20] LABS: Prothrombin Time 10.8 sec (10.0-12.5)
[2023-09-15 17:22] LABS: Bilirubin,Unconjugated 0.2 mg/dL (0.0-1.1); Total Bilirubin 0.3 mg/dL (0.2-1.3)
--- NOTE | 2023-09-16 08:36 | US ---
EXAMINATION TYPE: US thyroid st tissue head/neck DATE OF EXAM: 09/15/2023 COMPARISON: CLINICAL INDICATION: Male, 58 years old with history of E04.2 NONTOXIC MULTINODULAR GOITER; CT showed thyroid nodules. Not on thyroid meds. GLAND SIZE: Right Lobe: 4.8 x 2.2 x 2.2 cm Overall Parenchyma: heterogenous Left Lobe: 4.4 x 2.1 x 1.7 cm Overall Parenchyma: heterogenous Isthmus Thickness: 0.4 cm NODULES RIGHT: # of nodules measured on right: 2 1. 1.7 X 1.5 x 1.5 cm, mid mid, solid or almost completely solid, isoechoic nodule, which is wider than tall, with lobulated or irregular margins, without echogenic foci. TR 4 Prior size: No prior 2. 0.5 X 0.5 x 0.4 cm, upper mid, solid or almost completely solid, hypoechoic nodule, which is wid er than tall, with ill-defined margins, with echogenic foci rim. Prior size: No prior LEFT: # of nodules measured on left: 0 ISTHMUS: # of nodules measured in the isthmus: 0 Bilateral neck scanned. Left lateral neck prominent lymph node seen with short axis = 0.5 cm and cor tical thickness = 3.2 mm . IMPRESSION: 1. Moderately suspicious nodule right lobe thyroid. Fine-needle aspiration is recommended. 2017 ACR TI-RADS LEVEL: TR-RADS 4 - Moderately Suspicious: Follow if > 1 cm, FNA if > 1.5 cm *Highest TI-RADS level nodule reported
[2023-09-16 10:59] LABS: % Iron Saturation 11.19 (15.00-50.00)
== END | disposition home or self-care (01) ==
LOC: RADUSWWP 08-25 16:56
PROVIDERS: ATTEND Family Medicine
DX: E04.2 Nontoxic multinodular goiter (principal); D50.9 Iron deficiency anemia, unspecified
CPT/HCPCS: 76536; 82248; 82607; 82728; 82746; 83010; 83540; 83550; 83615; 85025; 85045; 85610; 86880

== ENCOUNTER → 2024-09-03 | Outpatient (CLI) | payer OTHER ==
[2024-09-03 11:21] LABS: Basophils # (A) 0.03 X 10*3/uL (0.00-0.10); Basophils % (A) 0.4 %; Eosinophils # (A) 0.11 X 10*3/uL (0.04-0.35); Eosinophils % (A) 1.4 %; HCT 47.8 % (39.6-50.0); HGB 16.2 g/dL (13.0-17.0); Lymphocytes # (A) 1.87 X 10*3/uL (0.90-5.00); Lymphocytes % (A) 23.6 %; MCH 28.3 pg (27.0-32.0); MCHC 33.9 g/dL (32.0-37.0); MCV 83.6 FL (80.0-97.0); Mean Platelet Volume 9.6 FL (9.5-12.2); Monocytes # (A) 0.86 X 10*3/uL (0.20-1.00); Monocytes % (A) 10.8 %; NRBC Per 100 WBC 0 X 10*3/uL (0.00-0.01); Neutrophils # (A) 5.04 X 10*3/uL (1.80-7.70); Neutrophils % (A) 63.4 %; Platelet Count 215 X 10*3/uL (140-440); RBC 5.72 X 10*6/uL (4.40-5.60); WBC 7.94 X 10*3/uL (4.50-10.00)
[2024-09-03 11:52] LABS: ALT 18 U/L (10-49); AST 21 U/L (14-35); Albumin 4.6 g/dL (3.8-4.9); Albumin/Globulin Ratio 2.42 Ratio (1.60-3.17); Alkaline Phosphatase 75 U/L (41-126); Blood Urea Nitrogen 14.4 mg/dL (9.0-27.0); Carbon Dioxide 27.8 mmol/L (21.6-31.8); Chloride 102 mmol/L (96-109); Chol/HDL Ratio 3.89 Ratio; Globulin 1.9 g/dL (1.6-3.3); Glucose 154 mg/dL (70-110); Potassium 4.5 mmol/L (3.5-5.5); Prostate Specific Antigen 1.12 ng/mL (0.000-3.500); Sodium 141 mmol/L (135-145); Total Bilirubin 0.4 mg/dL (0.3-1.2); Total Protein 6.5 g/dL (6.2-8.2)
== END | disposition home or self-care (01) ==
LOC: LABWHC1 06:57
PROVIDERS: ATTEND Family Medicine
DX: E11.9 Type 2 diabetes mellitus without complications (principal); E29.1 Testicular hypofunction; E03.9 Hypothyroidism, unspecified
CPT/HCPCS: 36415; 80053; 80061; 83036; 84153; 84403; 84443; 85025; 86376

== ENCOUNTER → 2025-06-18 | Outpatient (CLI) | payer OTHER ==
[2025-06-18 13:43] LABS: ALT 32 U/L (10-49); AST 26 U/L (14-35); Albumin 4.6 g/dL (3.8-4.9); Albumin/Globulin Ratio 2.09 Ratio (1.60-3.17); Alkaline Phosphatase 77 U/L (41-126); Anion Gap 15.60 mmol/L (4.00-12.00); BUN/Creat Ratio 21.75 Ratio (12.00-20.00); Blood Urea Nitrogen 17.4 mg/dL (9.0-27.0); Calcium 9.2 mg/dL (8.7-10.3); Carbon Dioxide 25.4 mmol/L (21.6-31.8); Chloride 108 mmol/L (96-109); Cholesterol 151.00 mg/dL (0.00-200.00); Globulin 2.2 g/dL (1.6-3.3); Glucose 154 mg/dL (70-110); HDL Cholesterol 39.70 mg/dL (40.00-60.00); LDL Cholesterol,Calculated 69.1 mg/dL (0.0-131.0); Potassium 4.5 mmol/L (3.5-5.5); Sodium 149 mmol/L (135-145); T4, Free (Free Thyroxine) 1.17 ng/dL (0.80-1.80); Total Protein 6.8 g/dL (6.2-8.2); Triglycerides 211.00 mg/dL (0.00-149.00); VLDL Calculation 42.20 mg/dL (5.00-40.00)
== END | disposition home or self-care (01) ==
LOC: LABWHC1 08:02
PROVIDERS: ATTEND Family Medicine
DX: E11.9 Type 2 diabetes mellitus without complications (principal); E78.5 Hyperlipidemia, unspecified; R53.83 Other fatigue
CPT/HCPCS: 36415; 80053; 80061; 83036; 84439; 84443; 84481; 86376